=== PATIENT | male | born 1955 | race Caucasian/White ===

== ENCOUNTER 2021-09-15 19:33 | Emergency (ER) | payer MEDICARE, SELFPAY ==
--- NOTE | 2021-09-15 | ECG_ITS ---
Test Reason : NECK PAIN Blood Pressure : / mmHG Vent. Rate : 080 BPM Atrial Rate : 080 BPM P-R Int : 152 ms QRS Dur : 140 ms QT Int : 404 ms P-R-T Axes : 031 -36 001 degrees QTc Int : 465 ms Normal sinus rhythm Left axis deviation Right bundle branch block Abnormal ECG No previous ECGs available Referred By: Generic ED Physician Electronically Signed By:Todd North
--- NOTE | ~2021-09-15 | CT_ITS ---
EXAMINATION: CT CERVICAL SPINE WITHOUT CONTRAST CLINICAL INFORMATION: Neck pain, muscle spasm COMPARISON: None TECHNIQUE: Axial imaging. Sagittal and coronal reconstructions This CT examination was performed using dose optimization techniques as appropriate, variously including the following: *Automated exposure control *Adjustment of mA and/or kV according to patient size (this includes techniques or standardized protocols for targeted exams where dose is matched to indication/reason for exam; i.e. extremities or head) *Use of iterative reconstruction technique DLP: 547 mGy-cm FINDINGS: There is straightening of the cervical curvature. Minimal retrolisthesis of C3 on C4, C5 on C6. Vertebral body heights are maintained. No acute fractures identified. Craniocervical and atlantoaxial alignment is maintained. There is degeneration of the articulation of the dens and anterior arch of C1. Multilevel spondylosis, including mild to moderate C3-C4, C5-C6 disc degeneration. Central canal is grossly maintained. No significant prevertebral soft tissue swelling. There are 2 small foci of heterotopic ossification in the posterior soft tissues of the cervical spine. No suspicious thyroid findings. No suspicious findings in the visualized lung apices. CT/CT cervical spine wo con IMPRESSION: 1. No CT evidence of acute fracture. 2. Cervical spondylosis, including mild to moderate C3-C4, C5-C6 disc degeneration.
[2021-09-15 19:38] VITALS: BMI 32.8
--- NOTE | 2021-09-15 20:01 | ED.GENADULT ---
HPI - General Adult General Chief complaint: Neck Pain/Injury Stated complaint: tightened muscles, shooting pain from neck to head Time Seen by Provider: 09/15/21 19:53 Source: patient Limitations: no limitations History of Present Illness HPI narrative: This is a 65-year-old male who has had progressively worse pain in the feeling of muscle spasm in his neck, with worsened pain turning to the left, over the last month but especially in the last 4 days. Patient notes he got to hockey game 4 days ago and with looking back and forth the pain seemed to have gotten worse. He notes that when he drives he cannot walk to live. He denies any numbness or tingling to his arms or legs. Denies any injury. He does have a history of low back pain. When he was considerably younger he did have some neck pain when he was painting the house. He notes the pain radiates down toward his left shoulder and up to the back of his head. He has history of hypertension, diabetes mellitus, hypercholesterolemia. Related Data Previous Rx's Medication Instructions Recorded diazepam 5 mg tablet (Valium) 5 mg PO BID PRN muscle spasm #10 09/15/21 tabs Allergies Allergy/AdvReac Type Severity Reaction Status Date / Time No Known Allergies Allergy Verified 09/15/21 19:59 Review of Systems Review of Systems: As per HPI Constitutional: Constitutional: Denies headache(s) Eyes: Eyes: Reports no additional eye complaints ENT: Denies headache(s) and Reports neck pain Cardiovascular: Cardiovascular: Reports no additional cardiovascular complaints Respiratory: Respiratory: Reports no additional respiratory complaints Gastrointestinal: Gastrointestinal: Reports no additional gastrointestinal complaints Musculoskeletal: Musculoskeletal: Reports neck pain, Reports stiffness and Denies tingling Neurologic: Denies headache(s) and Denies tingling PMFSH Social History Social History Advance Directives: No Advance Directives Information Provided: No Physical Exam ED Vital Signs: BMI result Body Mass Index 32.8 Const Other: Patient sitting up on side of the gurney, appears mildly uncomfortable, cannot turn head to the left, tends to move torso with his neck to avoid independent neck movement. A focal C-spine tenderness. There is left-sided paraspinal tenderness at the base of the neck down to the trapezius muscle distribution, with mild spasm palpable General: no acute distress Orientation/consciousness: patient oriented x3 HENMT Head: Yes normal to inspection General nose exam: Normal external nose present Mouth: moist mucous membranes Throat: Yes posterior oropharynx normal, Yes tonsils normal and Yes uvula midline Eyes Eyelids: Yes eyelids normal Conjunctivae: conjunctivae normal Pupils: Equal, round and reactive pupils present Neck Neck: Yes supple Resp Effort & Inspection: normal respiratory effort Auscultation: clear to auscultation bilaterally Cardio Rate: regular rate Rhythm: regular rhythm Heart sounds: S1 normal heart sound present, S2 normal heart sound present, no gallops, no murmurs and no rubs GI Inspection: No distended Palpation (GI): Soft to palpation and nontender Auscultation: normal bowel sounds Skin General skin exam: other (Warm and dry) Neuro General: patient oriented x3 and CN's II-XI intact bilaterally Cranial nerves: Yes Equal, round and reactive pupils present Extrem General: Yes no pedal edema Psych Affect: normal affect Attitude: cooperative Medical Decision Making MDM Narrative Medical decision making narrative: Patient with gradual onset of left-sided neck muscle spasm and pain, radiating up to the back of his head and down toward his shoulder. No distinct injury, though the pain did get worse this week after watching the hockey game. Given the patient's age, CT scan noncontrast was done to rule out significant disc disease, or osteolytic or osteoblastic lesions, and the CT scan showed only spondylosis and mild to moderate disc degeneration. Patient was given Valium 6 mg p.o., Toradol 15 mg IM and had definite improvement in his symptoms. Will prescribe Valium, and the patient can take Naprosyn that his states they have at home Imaging Data CT cervical spine: Radiologist's impression: 1. No CT evidence of acute fracture. ? 2. Cervical spondylosis, including mild to moderate C3-C4, C5-C6 disc degeneration.? Discharge Plan Discharge Clinical Impression: Torticollis Patient Disposition: Home, Self-Care Instructions: Spasmodic Torticollis (ED) Additional Instructions: Use the Naprosyn 500 mg by mouth twice a day with food. Use the diazepam 5 mg p.o. to 3 times a day, for muscle pain/spasm. Ice alternating with heat may be helpful. Physical therapy referral by your primary care physician may be beneficial. Prescriptions: New diazepam [Valium] 5 mg tablet 5 mg PO BID PRN (Reason: muscle spasm) Qty: 10 0RF Interventions: ED Discharge Assessment Last Done: 09/15/21 21:15 Discharge Date/Time: 09/15/21 21:24
[2021-09-15] MEDS: diazePAM 2 MG TABLET 6 MG PO (20:15)
[2021-09-15] MEDS: Ketorolac Tromethamine 15 MG/ML VIAL IM (20:15)
== END 2021-09-15 21:24 | disposition home or self-care (01) ==
PROVIDERS: Emergency Provider Emergency Medicine; PCP Internal Medicine
DX: M43.6 Torticollis (principal)
CPT/HCPCS: 72125; 93005; 96372; 99283; 99284; J1885

== ENCOUNTER 2022-10-07 09:00 | Emergency (ER) | payer MEDICARE, SELFPAY ==
[2022-10-07 09:08] VITALS: BP 127/84; PULSE 80; RESP 16; TEMP 36.1; O2SAT 96; BMI 32.9
--- NOTE | 2022-10-07 10:35 | ED.SKABFB ---
HPI - Skin/Abscess/Foreign Bdy General Chief complaint: Skin/Abscess/Foreign Body Stated complaint: Right thumb infected? Time Seen by Provider: 10/07/22 09:47 Source: patient and RN notes reviewed Mode of arrival: ambulatory Limitations: no limitations History of Present Illness HPI narrative: This is a 66-year-old male, with a past medical history of diabetes, hypertension, and hyperlipidemia, presenting to the emergency department for evaluation right thumb splinter times days. Patient states he was moving a piece wood when suddenly he felt a sliver going to his right thumb. He did not try to remove the sliver. He states that the area is slightly sore has noticed increasing redness around sliver. Patient is right handed. Denies any fevers or chills complaints or concerns at this time. MD complaint: foreign body Tetanus up to date: no Severity: moderate Relieving factors: none Exacerbating factors: none Context: none Associated symptoms: denies other symptoms Treatments prior to arrival: none Related Data Previous Rx's Medication Instructions Recorded diazepam 5 mg tablet (Valium) 5 mg PO BID PRN muscle spasm #10 09/15/21 tabs bacitracin 500 unit/gram topical 1 appl topical TID #14 grams 10/07/22 ointment cephalexin 500 mg capsule 500 mg PO QID 5 days #20 caps 10/07/22 Allergies Allergy/AdvReac Type Severity Reaction Status Date / Time No Known Allergies Allergy Verified 10/07/22 11:35 Review of Systems Review of Systems: Constitutional: No Weight loss, No Fever, No Chills ENT/Mouth: No Ear Pain, No Nasal Congestion, No Sinus Pain, No Hoarseness, No sore throat, No Rhinorrhea, No Swallowing Difficulty Cardiovascular: No Chest Pain, No SOB Respiratory: No Cough, No Sputum, No Wheezing Gastrointestinal: No Nausea, No Vomiting, No Diarrhea, No Constipation, No Abdominal pain Genitourinary: No Dysuria, No Urinary Frequency, No Hematuria, No Urinary Incontinence/retention, No Urgency, No Flank Pain Musculoskeletal: No joint pain, No Myalgias, No Joint Swelling Skin: No Skin Lesions, No rash Neuro: No Weakness, No Numbness, No Paresthesias Yes all other systems are reviewed and are negative Constitutional: Constitutional: Reports as per [facility] Social History Social History Advance Directives: No Advance Directives Information Provided: No Physical Exam Vital Signs: Vital Signs: Last Vital Signs Temp 97 F 10/07/22 09:08 Pulse 80 10/07/22 09:08 Resp 16 10/07/22 09:08 BP 127/84 10/07/22 09:08 Pulse Ox 96 10/07/22 09:08 O2 Del Method Room Air 10/07/22 09:08 BMI result Body Mass Index 32.9 Const: General: cooperative, comfortable and no acute distress Orientation/consciousness: patient oriented x3 Limitations: no limitations HEENT: Head: Yes normal to inspection, Yes normocephalic and Yes atraumatic Ears: hearing grossly normal bilaterally General nose exam: Normal external nose present Face and sinus: Yes normal facial exam Mouth: Normal oral and palatal mucosa present, oropharynx normal and moist mucous membranes Throat: Yes posterior oropharynx normal Eyes: General: appearance normal, both eyes and all related structures Eyelids: Yes eyelids normal Conjunctivae: conjunctivae normal Sclerae: sclerae normal Pupils: Equal, round and reactive pupils present EOM: EOMs intact bilaterally Neck: Neck: Yes normal visual inspection, Yes full ROM and Yes no lymphadenopathy Lymphatic: no lymphadenopathy noted Chest: Chest palpation & inspection: normal inspection of the chest Resp: Effort & Inspection: normal respiratory effort and able to speak in complete sentences Auscultation: clear to auscultation bilaterally, no crackles, no rales, no rhonchi and no wheezes Cardio: Rate: regular rate Rhythm: regular rhythm Heart sounds: S1 normal heart sound present and S2 normal heart sound present GI: Inspection: Yes normal to inspection Skin: Other: Right thumb palmar aspect at the MCP there is a punctate black dot noted medially, with mild erythema surrounding proximally 2 mm from punctate foreign body. No drainage, open wounds, swelling. Distal sensation circulation intact. General skin exam: no rashes or lesions noted Trauma: no lacerations or abrasions Wounds: no wounds Neuro: General: patient oriented x3 and moves all extremities Cranial nerves: Yes Equal, round and reactive pupils present Extrem: General: Yes normal to inspection Right upper extremity: normal to inspection Left upper extremity: normal to inspection Right lower extremity: normal to inspection Left lower extremity: normal to inspection Medications Administered Discontinued Medications Generic Name Dose Route Start Last Admin Trade Name Freq PRN Reason Stop Dose Admin Diphtheria/Tetanus/Acell Pertussis 0.5 ml 10/07/22 10:40 10/07/22 11:24 Diphth,Pertus(Acell),Tet Adult 0.5 Ml Syringe IM 10/07/22 10:41 0.5 ml .ONCE ONE Administration Medical Decision Making Medical Decision Making [facility] Narrative: This 66-year-old male presenting to the emergency department with a complaint of sliver in right thumb x3 days. Has some surrounding tenderness no streaking drainage fevers or chills. Right thumb was soaked with Betadine saline for 20 minutes, foreign body was successfully removed using 20 gauge needle and forceps. Wound dressed with bacitracin and bandage. Patient tolerated procedure well without any complications or concerns. Will place patient on prophylactic Keflex for prevented cellulitis. Tetanus updated in department today. Educated on return precautions. Patient understands and agrees with plan. Patient stable for discharge. Plan: Update tetanus, removal foreign body. Differential Diagnosis Differential Diagnoses: The differential diagnosis associated with the presentation includes Foreign body, cellulitis, abscess Admission/Observation Consideration of admission/observation: Escalation of care including admission/observation considered Lab Data [facility] Lab Attestation statement: I reviewed the patient's lab results. Radiology Impression Discussion of test interpretation with radiology: I have reviewed the radiologist's reading. External Record Review External record reviewed: Inpatient record, Office record, Outpatient record, Prior outpatient labs, Prior outpatient radiology, Primary care record and Outside ED record Procedures Foreign Body Removal Time Out Performed: yes Site: right and hand Sedation/Analgesia: none Technique: manual removal and removal with forceps Confirmed by:: direct visualization Complications: none Post-procedure exam: awake, alert Neurovascular: normal distal pulse and normal capillary fill Discharge Plan Discharge Clinical Impression: Foreign body (FB) in soft tissue, Cellulitis Patient Disposition: Home, Self-Care Instructions: Soft Tissue Foreign Body (ED), Cellulitis (ED) Additional Instructions: We removed the splinter from your right thumb today. Please apply bacitracin to your thumb. Keep a close eye on your thumb, and watch for any increasing pain, redness, swelling, fevers or chills. Take prescribed antibiotic as directed. Finish the entire course even if your feeling better. We updated your tetanus immunization today. If any new or worsening symptoms occur please return for re-evaluation. Prescriptions: New cephalexin 500 mg capsule 500 mg PO QID 5 Days Qty: 20 0RF bacitracin 500 unit/gram ointment 1 appl topical TID Qty: 14 0RF No Action diazepam [Valium] 5 mg tablet 5 mg PO BID PRN (Reason: muscle spasm) Qty: 10 0RF Interventions: ED Discharge Assessment Last Done: 10/07/22 11:36 Discharge Date/Time: 10/07/22 11:36
== END 2022-10-07 11:36 | disposition home or self-care (01) ==
PROVIDERS: Emergency Provider Emergency Medicine; PCP Internal Medicine
DX: S60.511A Abrasion of right hand, initial encounter (principal); M60.241 Foreign body granuloma of soft tissue, not elsewhere classified, right hand; L03.113 Cellulitis of right upper limb; X58.XXXA Exposure to other specified factors, initial encounter; Y93.9 Activity, unspecified; Y92.9 Unspecified place or not applicable; Y99.9 Unspecified external cause status; Z79.899 Other long term (current) drug therapy; Z23 Encounter for immunization
CPT/HCPCS: 90471; 90715; 99282; 99284

== ENCOUNTER 2023-02-08 15:30 | Emergency (ER) | payer MEDICARE, SELFPAY ==
--- NOTE | ~2023-02-08 | XR_ITS ---
EXAMINATION: XR CHEST CLINICAL INFORMATION: Shortness of breath COMPARISON: None available. TECHNIQUE: 2 views of the chest were obtained. FINDINGS: No significant abnormality is noted involving the heart, lungs, mediastinum, bony thorax or soft tissues. XR/XR chest 2V IMPRESSION: Unremarkable examination.
[2023-02-08 15:38] VITALS: BP 151/89; PULSE 93; RESP 16; TEMP 36.8; O2SAT 95; BMI 35.6
--- NOTE | 2023-02-08 15:38 | ED.SOB ---
HPI - SOB/Dyspnea General Chief Complaint: Upper Respiratory Symptoms Stated Complaint: Diff breathing Time Seen by Provider: 02/08/23 16:45 Source: patient Mode of arrival: ambulatory Limitations: no limitations History of Present Illness HPI Narrative: Patient is a 67 year old assigned male at with a history of HTN and HLD presenting to the emergency department today with a cough. Patient states that over the last 2 weeks he has had a productive cough. Patient denies any current dizziness, lightheadedness, abdominal pain, nausea, vomiting, fever, chills, blurry vision, double vision, loss of vision, chest pain, difficulty breathing, shortness of breath, back pain, night sweats, pain with urination, increased urinary frequency, increased urinary urgency, blood in his urine or stool, syncope or a near syncopal episode, recent trauma or falls, bowel incontinence, bladder incontinence, bowel retention, bladder retention, or any other complaints at this time. MD elicited complaint: cough Onset (ago): week(s) (2) Context: recent illness Timing: constant Severity: mild Related Data Previous Rx's Medication Instructions Recorded diazepam 5 mg tablet (Valium) 5 mg PO BID PRN muscle spasm #10 09/15/21 tabs bacitracin 500 unit/gram topical 1 appl topical TID #14 grams 10/07/22 ointment cephalexin 500 mg capsule 500 mg PO QID 5 days #20 caps 10/07/22 doxycycline hyclate 100 mg tablet 100 mg PO BID 7 days #14 tabs 02/08/23 prednisone 20 mg tablet 20 mg PO DAILY 7 days #7 tabs 02/08/23 Allergies Allergy/AdvReac Type Severity Reaction Status Date / Time No Known Allergies Allergy Verified 02/08/23 15:38 Review of Systems Constitutional: Constitutional: Reports no additional constitutional complaints, Denies chills, Denies fever(s) and Denies night sweats Eyes: Eyes: Reports no additional eye complaints, Denies blurry vision, Denies change in vision, Denies diplopia, Denies eye discharge, Denies loss of vision and Denies eye pain ENT: Denies dizziness Cardiovascular: Cardiovascular: Reports no additional cardiovascular complaints, Denies chest pain, Denies lightheadedness, Denies Loss of Consciousness and Denies dyspnea Respiratory: Respiratory: Reports no additional respiratory complaints, Reports cough and Denies dyspnea Gastrointestinal: Gastrointestinal: Reports no additional gastrointestinal complaints, Denies abdominal pain, Denies melena, Denies hematochezia, Denies change in bowel habits and Denies change in stool character Genitourinary: Genitourinary: Reports no additional male genitourinary complaints, Denies hematuria, Denies oliguria, Denies difficulty urinating, Denies dysuria, Denies urinary frequency, Denies urinary hesitancy, Denies urinary incontinence and Denies urinary urgency Musculoskeletal: Musculoskeletal: Reports no additional musculoskeletal complaints, Denies numbness and Denies tingling Neurologic: Denies dizziness, Denies loss of vision, Denies numbness and Denies tingling Psychiatric: Psychiatric: Reports no additional psychiatric complaints Endocrine: Endocrine: Reports no additional endocrine complaints Hematologic/Lymphatic: Hematologic/Lymphatic: Reports no additional hematologic/lymphatic complaints Allergic/Immunologic: Allergic/Immunologic: Reports no additional allergic/immunologic complaints PMFSH Past Medical History Attestation statement: The following information was validated with the patient. Source: old records reviewed and nursing notes reviewed Social History Social History Advance Directives: No Advance Directives Information Provided: No Physical Exam Vital Signs: Vital Signs: Last Vital Signs Temp 98.3 F 02/08/23 15:38 Pulse 93 02/08/23 15:38 Resp 16 02/08/23 15:38 BP 151/89 H 02/08/23 15:38 Pulse Ox 95 02/08/23 15:38 O2 Del Method Room Air 02/08/23 15:38 BMI result Body Mass Index 35.6 Const: General: cooperative, no acute distress, alert and awake Nutritional Appearance: well nourished Orientation/consciousness: patient oriented x3 Limitations: no limitations HEENT: Head: Yes normal to inspection and Yes atraumatic Ears: hearing grossly normal bilaterally and external ears normal General nose exam: Normal external nose present, no nasal discharge noted and no epistaxis Face and sinus: Yes normal facial exam, No abrasion and No laceration Mouth: Normal oral and palatal mucosa present, no drooling and no muffled voice Eyes: General: appearance normal, both eyes and all related structures Periorbital: periorbital findings normal Eyelids: Yes eyelids normal Conjunctivae: conjunctivae normal Pupils: Equal, round and reactive pupils present EOM: EOMs intact bilaterally Neck: Neck: Yes normal visual inspection, Yes full ROM and Yes no lymphadenopathy Chest: Chest palpation & inspection: normal inspection of the chest Resp: Effort & Inspection: normal respiratory effort, able to speak in complete sentences and Actively coughing Quality: wet GI: Inspection: Yes normal to inspection Neuro: General: patient oriented x3 and moves all extremities Cranial nerves: Yes Equal, round and reactive pupils present Cognition (Neuro): normal cognition Motor exam (neuro): 5/5 motor strength present throughout Sensory Exam: Normal double simultaneous stimulation for sensation Coordination: [id number] test normal Extrem: General: Yes normal to inspection, Yes full ROM and Yes capillary refill normal Psych: Appearance: grossly normal Mental Status: mental status grossly normal Affect: normal affect Attitude: cooperative Thought process: Normal thought process present Thought content: Normal thought content present Insight: Good insight present (Psych) Course Course Course Narrative: This is an RME: Additional HPI, ROS, PE not included below will be deferred to primary provider. Productive cough x 2 weeks, over past week worsening, dyspnea with exertion. Denies fevers, chills, CP Plan: labs, viral testing, CXR Medical Decision Making Medical Decision Making [facility] Narrative: Patient is a 67 year old assigned male at with a history of HTN and HLD presenting to the emergency department today with a cough. Patient's physical exam showed a cough. Patient's blood work was unremarkable. Patient's chest x-ray showed no acute process. I explained my physical exam findings as well as all test results to the patient. I answered all questions asked by the patient. I stressed the importance of the patient taking his medication as prescribed. I stressed the importance of the patient following up with his primary care provider. I stressed the importance of the patient returning to the emergency department immediately if his symptoms were to worsen or if he were to develop any dizziness, shortness of breath, difficulty breathing, chest pain, blurry vision, loss of vision, nausea, vomiting, abdominal pain, fever, chills, back pain, or any other complaints. Patient verbalized agreement and understanding with this treatment plan and discharge. Differential Diagnosis Differential Diagnoses: The differential diagnosis associated with the presentation includes COVID-19 PNA Influenza Bronchitis URI Admission/Observation Consideration of admission/observation: Escalation of care including admission/observation considered Patient would have been admitted to the hospital had his work up had any findings where hospital admission was appropriate and his clinical presentation warranted hospital admission. Lab Data MDM Lab Attestation statement: I reviewed the patient's lab results. My interpretation of these studies and their corresponding values is that they are grossly normal. 02/08/23 15:51 02/08/23 15:51 Labs: Lab Results 02/08/23 Range/Units 15:51 WBC 6.7 (4.8-10.8) X10*3/uL RBC 5.51 (4.60-5.80) X10*6/uL Hgb 16.1 (14.0-18.0) g/dl Hct 47.8 (42.0-52.0) % MCV 86.8 (80.0-98.0) fL MCH 29.2 (27.0-33.0) pg MCHC 33.7 (31.0-36.0) g/dl RDW 11.8 (11.0-16.0) % Plt Count 202 (160-400) X10*3/uL MPV 11.7 (9.4-12.4) fL Immature Gran % (Auto) 0.1 (0.0-0.4) % Neut % (Auto) 56.1 (45-73) % Lymph % (Auto) 31.1 (20-40) % [place] % (Auto) 9.2 (2-11) % Eos % (Auto) 2.8 (0-4) % Baso % (Auto) 0.7 (0-2) % Lymph # (Auto) 2.1 (1.2-4.9) X10*3/uL [place] # (Auto) 0.6 (0.1-1.2) X10*3/uL Eos # (Auto) 0.2 (0.0-0.4) X10*3/uL Baso # (Auto) 0.1 (0.0-0.2) X10*3/uL Abs Immat Gran (auto) 0.01 (0.00-0.03) X10*3/uL Absolute Neuts (auto) 3.8 (2.0-8.3) x10*3/uL Absolute Nucleated RBC 0.000 (0.0-0.012) X10*3/uL Nucleated RBC % (auto) 0.0 (0.0-0.2) /100WBC PT 11.1 (11.1-13.3) SEC INR 0.9 (0.9-1.1) Sodium 140 (135-145) mmol/L Potassium 3.8 (3.3-5.1) mmol/L Chloride 106 (96-108) mmol/L Carbon Dioxide 28 (22-29) mmol/L Anion Gap 10 L (12-20) BUN 18 H (9-16) mg/dL Creatinine 1.13 (0.5-1.4) mg/dL Estim Creat Clear Calc 70.5 Estimated GFR > 60 Random Glucose 173 H (60-115) mg/dL Calcium 9.8 (8.4-10.2) mg/dL Total Bilirubin 0.6 (0.0-1.0) mg/dL AST 23 (5-37) U/L ALT 34 (0-40) U/L Alkaline Phosphatase 72 (39-117) U/L B-Natriuretic Peptide < 10 (<100) pg/mL Total Protein 8.0 (6.5-8.0) g/dL Albumin 4.6 (3.5-5.0) g/dL COVID-19 (AN) Negative (Negative) COVID-19 Clin Com See Note Influenza Type A (DUNCAN) Negative (Negative) Influenza Type B (DUNCAN) Negative (Negative) Influenza A & B Note See Note Independent Interpretation I performed an independent interpretation of an: Plain X-Ray Interpretation: My interpretation is in agreement with the radiologist's impression of this imaging study. EXAMINATION: XR CHEST CLINICAL INFORMATION: Shortness of breath COMPARISON: None available. TECHNIQUE: 2 views of the chest were obtained. FINDINGS: No significant abnormality is noted involving the heart, lungs, mediastinum, bony thorax or soft tissues. XR/XR chest 2V IMPRESSION: Unremarkable examination. Dictated By: Quyen Mccoy MD Signed By: Electronically signed by Quyen Mccoy MD 02/08/23 7955 Radiology Impression Discussion of test interpretation with radiology: I have reviewed the radiologist's reading. Prescription Management I considered prescription management with: Antibiotic (patient prescribed an antibiotic.) Chronic Conditions Patient?s care impacted by: Hypertension Discharge Plan Discharge Clinical Impression: Upper respiratory infection Patient Disposition: Home, Self-Care Instructions: Upper Respiratory Infection (DC) Additional Instructions: Follow up with your primary care provider. Return to the emergency department immediately if your symptoms worsen or if you develop any dizziness, shortness of breath, difficulty breathing, chest pain, blurry vision, loss of vision, nausea, vomiting, abdominal pain, fever, chills, back pain, or any other complaints. Prescriptions: New prednisone 20 mg tablet 20 mg PO DAILY 7 Days Qty: 7 0RF doxycycline hyclate 100 mg tablet 100 mg PO BID 7 Days Qty: 14 0RF No Action diazepam [Valium] 5 mg tablet 5 mg PO BID PRN (Reason: muscle spasm) Qty: 10 0RF cephalexin 500 mg capsule 500 mg PO QID 5 Days Qty: 20 0RF bacitracin 500 unit/gram ointment 1 appl topical TID Qty: 14 0RF Referrals: Joseline Bingham MD [Primary Care Provider] - Interventions: ED Discharge Assessment Last Done: 02/08/23 18:05 Discharge Date/Time: 02/08/23 18:08 Print Language: Cymraes
[2023-02-08 15:56] LABS: MANUAL DIFF FLAG NO
[2023-02-08 15:59] LABS: Basophils Absolute Auto 0.1 X10*3/uL (0.0-0.2); Basophils Percent Auto 0.7 % (0-2); Eosinophils Absolute Auto 0.2 X10*3/uL (0.0-0.4); Eosinophils Percent Auto 2.8 % (0-4); Hematocrit 47.8 % (42.0-52.0); Hemoglobin 16.1 g/dl (14.0-18.0); Imm Gran Abs Auto 0.01 X10*3/uL (0.00-0.03); Imm Gran Pct Auto 0.1 % (0.0-0.4); Lymphocytes Absolute Auto 2.1 X10*3/uL (1.2-4.9); Lymphocytes Percent Auto 31.1 % (20-40); Mean Corpuscular HGB Conc 33.7 g/dl (31.0-36.0); Mean Corpuscular Hemoglobin 29.2 pg (27.0-33.0); Mean Corpuscular Volume 86.8 fL (80.0-98.0); Mean Platelet Volume 11.7 fL (9.4-12.4); Monocytes Absolute Auto 0.6 X10*3/uL (0.1-1.2); Monocytes Percent Auto 9.2 % (2-11); Neutrophils Absolute Auto 3.8 x10*3/uL (2.0-8.3); Neutrophils Percent Auto 56.1 % (45-73); Platelet Count 202 X10*3/uL (160-400); Red Blood Count 5.51 X10*6/uL (4.60-5.80); Red Cell Distribution Width 11.8 % (11.0-16.0); White Blood Count 6.7 X10*3/uL (4.8-10.8)
[2023-02-08 16:07] LABS: INTERNATIONAL NORM RATIO 0.9 (0.9-1.1); Prothrombin Time 11.1 SEC (11.1-13.3)
[2023-02-08 16:14] LABS: COVID-19 Test Negative (Negative); IDNOW Serial# BCCEAD1C
[2023-02-08 16:15] LABS: IDNOW Serial# 08D9AD1C; Influenza A Negative (Negative); Influenza B2 Negative (Negative)
[2023-02-08 16:18] LABS: Alanine Aminotransferase 34 U/L (0-40); Albumin Level 4.6 g/dL (3.5-5.0); Alkaline Phosphatase 72 U/L (39-117); Anion Gap 10 (12-20); Aspartate Amino Transferase 23 U/L (5-37); Bilirubin Total 0.6 mg/dL (0.0-1.0); Blood Urea Nitrogen 18 mg/dL (9-16); Calcium 9.8 mg/dL (8.4-10.2); Carbon Dioxide 28 mmol/L (22-29); Chloride 106 mmol/L (96-108); Creatinine Clr Calc Pharmacy 70.5; Estimated Glomerular Filt Rate > 60; Glucose Random 173 mg/dL (60-115); Potassium 3.8 mmol/L (3.3-5.1); Sodium 140 mmol/L (135-145)
[2023-02-08 16:23] LABS: B Type Natriuretic Peptide < 10 pg/mL (<100)
== END 2023-02-08 18:08 | disposition home or self-care (01) ==
PROVIDERS: Nurse Practitioner Family; Emergency Provider Emergency Medicine Emergency Medical Services; PCP Internal Medicine
DX: J06.9 Acute upper respiratory infection, unspecified (principal); R06.02 Shortness of breath; R05.9 Cough, unspecified; Z11.52 Encounter for screening for COVID-19; Z20.822 Contact with and (suspected) exposure to COVID-19; Z79.899 Other long term (current) drug therapy
CPT/HCPCS: 36415; 71046; 80053; 83880; 85025; 85610; 87502; 87635; 99282; 99283

== ENCOUNTER 2023-08-18 09:44 | Inpatient (IN) | payer MEDICARE, SELFPAY ==
[2023-08-18] VITALS (10 sets, daily range): BP systolic 108–154; BP diastolic 53–96; PULSE 97–123; RESP 14–22; TEMP 36.4–37; O2SAT 89–97; BMI 34.5
--- NOTE | ~2023-08-18 | XR_ITS ---
EXAMINATION: XR CHEST CLINICAL INFORMATION: Cough. COMPARISON: Most recent chest radiograph dated 02/08/2023. TECHNIQUE: 2 views of the chest were obtained. FINDINGS: The lungs are clear. The cardiomediastinal silhouette is normal in size. There is no pleural effusion or pneumothorax. No acute osseous abnormality. XR/XR chest 2V IMPRESSION: No acute cardiopulmonary findings.
--- NOTE | ~2023-08-18 | CT_ITS ---
EXAMINATION: CT CHEST WITHOUT CONTRAST CLINICAL INFORMATION: Shortness of breath COMPARISON: None available. TECHNIQUE: Multidetector volumetric CT imaging of the chest was done. Axial MIP volume rendering provided. Sagittal and coronal reformatted images were obtained. This CT examination was performed using dose optimization techniques as appropriate, variously including the following: *Automated exposure control *Adjustment of mA and/or kV according to patient size (this includes techniques or standardized protocols for targeted exams where dose is matched to indication/reason for exam; i.e. extremities or head) *Use of iterative reconstruction technique DLP: 337 mGy-cm FINDINGS: LUNGS: Central airways patent. Expiratory phase scan with mild diffuse bronchial wall thickening. Mild bilateral dependent subsegmental atelectasis. Mild linear left lower lobe and lingular atelectasis or scarring. No focal pulmonary consolidation. No suspicious pulmonary nodules identified. PLEURA: There is no pleural effusion. MEDIASTINUM: The heart is normal in size. Aorta and pulmonary artery are normal in caliber. No pericardial effusion. No mediastinal lymphadenopathy. Lack of intravenous contrast limits evaluation for hilar lymphadenopathy. No bulky hilar lymphadenopathy appreciated. CORONARY ARTERY CALCIFICATION: Mild coronary artery calcifications present. CHEST WALL/AXILLA: No axillary lymphadenopathy. UPPER ABDOMEN: Diffuse hepatic steatosis. OSSEOUS STRUCTURES: Chronic mild central superior endplate compression deformity of the T4 vertebral body. CT/CT chest wo IV con IMPRESSION: 1. Mild diffuse bronchial wall thickening may be accentuated by expiratory phase of scan though can be seen with inflammatory airways disease. No focal pulmonary consolidation or acute abnormality of the thorax. 2. Diffuse hepatic steatosis. 3. Mild coronary artery calcifications present. Correlate with cardiac risk factors.
--- NOTE | 2023-08-18 09:55 | ECG_ITS ---
Test Reason : sob Blood Pressure : / mmHG Vent. Rate : 107 BPM Atrial Rate : 107 BPM P-R Int : 146 ms QRS Dur : 138 ms QT Int : 348 ms P-R-T Axes : 023 -42 -02 degrees QTc Int : 464 ms Sinus tachycardia Left axis deviation Right bundle branch block Abnormal ECG When compared with ECG of 15-SEP-2021 19:36, No significant change was found Referred By: Generic ED Physician Electronically Signed By:Todd North
[2023-08-18 10:17] LABS: Basophils Percent Auto 0.2 % (0-2); Eosinophils Absolute Auto 0.1 X10*3/uL (0.0-0.4); Eosinophils Percent Auto 0.8 % (0-4); Hematocrit 49.7 % (42.0-52.0); Hemoglobin 16.5 g/dl (14.0-18.0); Imm Gran Abs Auto 0.02 X10*3/uL (0.00-0.03); Imm Gran Pct Auto 0.2 % (0.0-0.4); Lymphocytes Absolute Auto 1.6 X10*3/uL (1.2-4.9); Lymphocytes Percent Auto 17.6 % (20-40); MANUAL DIFF FLAG NO; Mean Corpuscular HGB Conc 33.2 g/dl (31.0-36.0); Mean Corpuscular Hemoglobin 29.5 pg (27.0-33.0); Mean Corpuscular Volume 88.9 fL (80.0-98.0); Mean Platelet Volume 11.6 fL (9.4-12.4); Monocytes Absolute Auto 0.7 X10*3/uL (0.1-1.2); Neutrophils Absolute Auto 6.6 x10*3/uL (2.0-8.3); Neutrophils Percent Auto 73.2 % (45-73); Platelet Count 167 X10*3/uL (160-400); Red Blood Count 5.59 X10*6/uL (4.60-5.80); Red Cell Distribution Width 12.5 % (11.0-16.0)
--- NOTE | 2023-08-18 10:22 | ED_ITS ---
HPI - General Adult General Chief complaint: Dyspnea Stated complaint: SOB Time Seen by Provider: 08/18/23 10:18 Source: patient Mode of arrival: ambulatory Limitations: no limitations History of Present Illness ED Provider: Janet REYES HPI narrative: 67-year-old male hx htn, hld, obesity, presents with a week of shortness of breath, cough, fatigue, malaise. Patient reports that he has been feeling increasingly short of breath with exertion and afterwards he will have a coughing fit, mostly a dry cough with sometimes has clear sputum. Patient reports shortness of breath and cough awoke him from his sleep last night multiple times. No recent travel, not a smoker, not on hormones. Doesnt know if he had a fever or not. Denies nausea, vomiting, headache, vision changes, dizziness, weakness, abd pain, sore throat. No sick contacts Related Data Home Medications ?Medication ?Instructions ?Recorded ?Confirmed amlodipine 5 mg tablet 5 mg PO DAILY 08/18/23 atorvastatin 40 mg tablet 40 mg PO DAILY 08/18/23 fenofibrate 54 mg tablet 54 mg PO DAILY 08/18/23 glipizide 5 mg tablet, extended 5 mg PO DAILY 08/18/23 release 24 hr lisinopril 20 mg tablet 20 mg PO DAILY 08/18/23 metformin 500 mg tablet 500 mg PO BID 08/18/23 omeprazole 40 mg capsule,delayed 40 mg PO DAILY 08/18/23 release Allergies Allergy/AdvReac Type Severity Reaction Status Date / Time No Known Allergies Allergy Verified 08/18/23 09:53 Review of Systems 2 Review of Systems: Yes all other systems are reviewed and are negative PMFSH Past Medical History Attestation statement: The following information was validated with the patient. Source: old records reviewed and nursing notes reviewed Social History Social History Advance Directives: No Advance Directives Information Provided: No Physical Exam ED Vital Signs: Vital Signs - 24 hr 08/18/23 09:50 08/18/23 10:38 08/18/23 11:24 Temperature 98.6 F 97.6 F Pulse Rate 114 H 98 Respiratory Rate 20 19 22 H Blood Pressure 153/96 H 146/81 H Pulse Oximetry 94 92 97 Oxygen Delivery Method Room Air Room Air Room Air 08/18/23 12:00 Temperature 97.7 F Pulse Rate 97 Respiratory Rate 20 Blood Pressure 138/77 Pulse Oximetry 93 Oxygen Delivery Method Room Air BMI result Body Mass Index 34.5 vss Appearance: Alert.? Oriented X3.? No acute distress.? Head: Normocephalic, atraumatic, no step-offs or deformities Eyes: Pupils equal, round and reactive to light.? ENT: Pharynx normal.? Neck: Normal inspection.? Neck supple.? CVS: Normal heart rate and rhythm.? Pulses normal.? Respiratory: No respiratory distress.? Breath sounds dinished b/l.? Abdomen: Soft and nontender.? Skin: Skin warm and dry.? Normal skin color.? Normal skin turgor.? Extremities: No lower extremity edema.? No calf ttp. 5/5 strength to bilateral upper and lower extremities Neuro: Oriented X 3.? No motor deficit.? No sensory deficit. CN 2-12 intact Course Reevaluation(s) Reevaluation #1: CBC no acute findings requiring intervention. Chemistry unremarkable. Troponin negative BNP negative. D-dimer negative. Nonischemic EKG. Ambulatory O2 between 93% 97%. Flu, COVID, RSV negative. Chest x-ray no acute cardiopulmonary findings. Ordered a chest CT to ensure that there is no other underlying etiologies for shortness of breath. Time: 11:37 Reevaluation #2: Patient keeps dipping down to 88-89% on room air. Still complaining of shortness of breath. Neb was ordered. Will give antibiotics for bronchial wall thickening noted and history consistent with bronchitis. Will admit for bronchitis and hypoxia. Time: 13:24 Medical Decision Making Medical Decision Making [facility] Narrative: 1033 67 year old male presents w/ sob and cough x 1 week worse w/ exertion PE diminished b/l Hx and pe concerning for viral illness vs bronchitis. Unlikley PE, ACS, CHF, ARDS, pna Plan- labs, imaging, xray Differential Diagnosis Differential Diagnoses: The differential diagnosis associated with the presentation includes Hx and pe concerning for viral illness vs bronchitis. Unlikley PE, ACS, CHF, ARDS, pna Lab Data 08/18/23 10:11 08/18/23 10:11 Labs: Lab Results 08/18/23 08/18/23 Range/Units 10:11 10:35 WBC 9.0 (4.8-10.8) X10*3/uL RBC 5.59 (4.60-5.80) X10*6/uL Hgb 16.5 (14.0-18.0) g/dl Hct 49.7 (42.0-52.0) % MCV 88.9 (80.0-98.0) fL MCH 29.5 (27.0-33.0) pg MCHC 33.2 (31.0-36.0) g/dl RDW 12.5 (11.0-16.0) % Plt Count 167 (160-400) X10*3/uL MPV 11.6 (9.4-12.4) fL Immature Gran % (Auto) 0.2 (0.0-0.4) % Neut % (Auto) 73.2 H (45-73) % Lymph % (Auto) 17.6 L (20-40) % [place] % (Auto) 8.0 (2-11) % Eos % (Auto) 0.8 (0-4) % Baso % (Auto) 0.2 (0-2) % Lymph # (Auto) 1.6 (1.2-4.9) X10*3/uL [place] # (Auto) 0.7 (0.1-1.2) X10*3/uL Eos # (Auto) 0.1 (0.0-0.4) X10*3/uL Baso # (Auto) 0.0 (0.0-0.2) X10*3/uL Abs Immat Gran (auto) 0.02 (0.00-0.03) X10*3/uL Absolute Neuts (auto) 6.6 (2.0-8.3) x10*3/uL Absolute Nucleated RBC 0.000 (0.0-0.012) X10*3/uL Nucleated RBC % (auto) 0.0 (0.0-0.2) /100WBC PT 12.7 (11.1-13.3) SEC INR 1.0 (0.9-1.1) D-Dimer High Sensitivty < 150 NG/ML Sodium 139 (135-145) mmol/L Potassium 3.7 (3.3-5.1) mmol/L Chloride 104 (96-108) mmol/L Carbon Dioxide 22 (22-29) mmol/L Anion Gap 17 (12-20) BUN 19 H (9-16) mg/dL Creatinine 1.08 (0.5-1.4) mg/dL Estim Creat Clear Calc 72.6 Estimated GFR > 60 Random Glucose 300 H (60-115) mg/dL Calcium 10.3 H (8.4-10.2) mg/dL Magnesium 1.6 (1.6-2.6) mg/dL Total Bilirubin 0.9 (0.0-1.0) mg/dL Direct Bilirubin 0.3 (0.0-0.5) mg/dL AST 20 (5-37) U/L ALT 30 (0-40) U/L Alkaline Phosphatase 62 (39-117) U/L Troponin I High Sens < 2.7 (<3.5-35.0) ng/L B-Natriuretic Peptide < 10 (<100) pg/mL Total Protein 7.5 (6.5-8.0) g/dL Albumin 4.5 (3.5-5.0) g/dL Influenza Type A (PCR) NEGATIVE (Negative) Influenza Type B (PCR) NEGATIVE (Negative) RSV RNA Qual (PCR) NEGATIVE (Negative) SARS-CoV-2 RNA (RT-PCR) NEGATIVE (Negative) Critical Care Time Critical Care Time Critical Care Time: Yes Total Critical Care Time: 45 Attestation: I attest to this time spent taking care of the patient, obtaining history, physical, reviewing labs, imaging, speaking to my attending, specialist or hospitalist. Discharge Plan Discharge Clinical Impression: Bronchitis, Hypoxia Patient Disposition: Admitted As Inpatient Additional Instructions: Take your medications as prescribed. If you were prescribed antibiotics today, it is important that you take your medication to their entirety, do not skip any doses, do not finish them early. Follow-up with your primary care provider this week. Return to the emergency department with new or worsening symptoms. Such as fevers, chills, chest pain, shortness of breath, nausea, vomiting, dizziness, headache, vision changes, lethargy In case of emergency call 911 Print Language: Mongolian
[2023-08-18 10:43] LABS: Alanine Aminotransferase 30 U/L (0-40); Albumin Level 4.5 g/dL (3.5-5.0); Alkaline Phosphatase 62 U/L (39-117); Anion Gap 17 (12-20); Aspartate Amino Transferase 20 U/L (5-37); Bilirubin Direct 0.3 mg/dL (0.0-0.5); Bilirubin Total 0.9 mg/dL (0.0-1.0); Blood Urea Nitrogen 19 mg/dL (9-16); Calcium 10.3 mg/dL (8.4-10.2); Carbon Dioxide 22 mmol/L (22-29); Chloride 104 mmol/L (96-108); Creatinine Clr Calc Pharmacy 72.6; Estimated Glomerular Filt Rate > 60; Glucose Random 300 mg/dL (60-115); Magnesium 1.6 mg/dL (1.6-2.6); Potassium 3.7 mmol/L (3.3-5.1); Sodium 139 mmol/L (135-145); Total Protein 7.5 g/dL (6.5-8.0)
[2023-08-18 10:48] LABS: B Type Natriuretic Peptide < 10 pg/mL (<100)
[2023-08-18 10:49] LABS: Troponin-I High Sensitivity < 2.7 ng/L (<3.5-35.0)
[2023-08-18 11:01] LABS: Prothrombin Time 12.7 SEC (11.1-13.3)
[2023-08-18 11:01] LABS: Influenza A PCR NEGATIVE (Negative); Influenza B PCR NEGATIVE (Negative); Resp Syncy Virus RNA Qual PCR NEGATIVE (Negative); SARS COV2 PCR INHOUSE NEGATIVE (Negative)
[2023-08-18 11:04] LABS: D Dimer High Sensitivity < 150 NG/ML
[2023-08-18] MEDS: Albuterol Sulfate 2.5 MG, Albuterol/Iprat 2.5/0.5MG 3 ML 3 ML INHALE (13:33)
--- NOTE | 2023-08-18 13:39 | P.HPHOSP_ITS ---
History of Present Illness Date of Service: 08/18/23 Attending physician on admission: Catarino Taveras Chief Complaint: SOB Pt is a 67-year-old male with a PMH significant for?HTN, HLD, sin-rhehjtt-wkshxoaln type 2 diabetes, hx of prostate cancer s/p radical prostatectomy and radiation,and GERD who presents to the ED with?cough, SOB, weakness, and malaise x1 week. Reports having prolonged, uncontrollable coughing episodes without clear precipitating factors, though feels SOB and winded after exertion. Cough mostly dry but occasionally productive of clear sputum. Mild abdominal pain associated with cough. No fever, chills, N/V or diarrhea. Denies hx of smoking or diagnosis of asthma or COPD. No chest pain/pressure, palpitations. Not on home inhalers. Denies recent travel or sick contacts. Patient presents today due to prolonged and persistent nature of symptoms, and at the recommendation of a nurse he saw yesterday at a wellness check at his work. In the ED pt was afebrile, but tachycardic up to 114, tachypneic up 22, and initially hypertensive to 153/96, noted to be satting as low as 87% on RA during interview and exam. Labs were grossly unremarkable. No leukocytosis. Stable H&H. No significant electrolyte abnormalities. Renal and hepatic function baseline. Troponin negative. BNP negative. D-dimer negative. CXR showed no acute cardiopulmonary findings. CT?of chest found mild diffuse bronchial wall thickening without focal pulmonary consolidation or acute abnormality of the thorax. Also showed diffuse hepatic steatosis and mild coronary artery calcification. EKG demonstrated sinus tachycardia with RBBB and no significant ST elevations or depressions, similar to previous. Pt was treated with DuoNeb, Solu-Medrol azithromycin, and ceftriaxone. Pt will be admitted to the hospital under observation for treatment and further evaluation of acute hypoxic respiratory failure in the setting bronchitis likely secondary to viral source. Review of Systems 2 Review of Systems: Mostly nonproductive cough SOB, LOZANO Fatigue, malaise No chest pain/pressure, palpitations Denies nausea, vomiting, diarrhea [facility] Medical History (Updated 08/18/23 @ 15:18 by NUVIA Fraga) Prostate cancer GERD (gastroesophageal reflux disease) Non-insulin dependent type 2 diabetes mellitus HTN (hypertension) HLD (hyperlipidemia) Surgical History (Updated 08/18/23 @ 15:18 by NUVIA Fraga) H/O radical prostatectomy Social History Advance Directives: No Advance Directives Information Provided: No Meds Allergies Allergy/AdvReac Type Severity Reaction Status Date / Time No Known Allergies Allergy Verified 08/18/23 09:53 Active Medications: Current Medications Ceftriaxone Sodium 1 gm/ (Sodium Chloride) 50 mls @ 100 mls/hr IV ONCE ONE Stop: 08/18/23 13:52 Azithromycin 500 mg/ Sodium (Chloride) 250 mls @ 125 mls/hr IV ONCE ONE Stop: 08/18/23 15:22 Home Medications ?Medication ?Instructions ?Recorded ?Confirmed ?Last Taken ?Type amlodipine 5 mg tablet 5 mg PO BEDTIME 08/18/23 08/18/23 Unknown History atorvastatin 40 mg tablet 40 mg PO BEDTIME 08/18/23 08/18/23 Unknown History cholecalciferol (vitamin D3) 50 50 mcg PO BEDTIME 08/18/23 08/18/23 Unknown History mcg (2,000 unit) tablet (Vitamin D3) fenofibrate 54 mg tablet 54 mg PO DAILY 08/18/23 08/18/23 08/18/23 09:00 History glipizide 5 mg tablet, extended 5 mg PO DAILY 08/18/23 08/18/23 08/18/23 09:00 History release 24 hr lisinopril 20 mg tablet 20 mg PO BEDTIME 08/18/23 08/18/23 Unknown History metformin 500 mg tablet 500 mg PO BID 08/18/23 08/18/23 08/18/23 09:00 History multivitamin 1 tab PO DAILY 08/18/23 08/18/23 08/18/23 09:00 History naproxen sodium 220 mg tablet 220 mg PO DAILY 08/18/23 08/18/23 08/18/23 09:00 History omeprazole 40 mg capsule,delayed 40 mg PO DAILY@0630 08/18/23 08/18/23 08/18/23 09:00 History release Physical Exam 2 Vital Signs and Narrative: Vital Signs: Last Vital Signs Temp 97.7 F 08/18/23 12:00 Pulse 101 H 08/18/23 13:34 Resp 16 08/18/23 13:34 BP 138/77 08/18/23 12:00 Pulse Ox 93 08/18/23 12:00 O2 Del Method Room Air 08/18/23 12:00 BMI result Body Mass Index 34.5 Constitutional: Alert, in no acute distress. Mental Status: Oriented to person, place and time. Eyes: Pupils are equal, round, and reactive to light. Ear, Nose, and Throat: Oropharynx clear, mucous membranes moist. Ears and nose without deformities. Trachea midline. Respiratory: Clear to auscultation bilaterally but diminished. No wheezing, rales, or rhonchi. Some extra work of breathing but able to speak in full sentences. Cardiovascular: S1, S2 regular rhythm but tachycardic. No murmurs, rubs, or gallops. Gastrointestinal: Abdomen soft, non-tender, non-distended. Normal bowel sounds. Neurologic: Cranial nerves II-XII are grossly intact bilaterally. No focal neurological deficits. Moves all extremities spontaneously. Skin: Warm, dry. Musculoskeletal: No cyanosis or clubbing. Extremities: No edema. Psychiatric: Normal mood and affect. Results Labs 08/18/23 10:11 08/18/23 10:11 Labs: Laboratory Results - last 24 hr 08/18/23 08/18/23 10:11 10:35 MCV 88.9 MCH 29.5 MCHC 33.2 RDW 12.5 Plt Count 167 MPV 11.6 Immature Gran % (Auto) 0.2 Neut % (Auto) 73.2 H Lymph % (Auto) 17.6 L Ford % (Auto) 8.0 Eos % (Auto) 0.8 Baso % (Auto) 0.2 Lymph # (Auto) 1.6 Ford # (Auto) 0.7 Eos # (Auto) 0.1 Baso # (Auto) 0.0 Abs Immat Gran (auto) 0.02 Absolute Neuts (auto) 6.6 Absolute Nucleated RBC 0.000 Nucleated RBC % (auto) 0.0 PT 12.7 INR 1.0 D-Dimer High Sensitivty < 150 Anion Gap 17 Estim Creat Clear Calc 72.6 Estimated GFR > 60 Random Glucose 300 H Calcium 10.3 H Magnesium 1.6 Total Bilirubin 0.9 Direct Bilirubin 0.3 AST 20 ALT 30 Alkaline Phosphatase 62 Troponin I High Sens < 2.7 B-Natriuretic Peptide < 10 Total Protein 7.5 Albumin 4.5 Influenza Type A (PCR) NEGATIVE Influenza Type B (PCR) NEGATIVE RSV RNA Qual (PCR) NEGATIVE SARS-CoV-2 RNA (RT-PCR) NEGATIVE Imaging Radiologist's Impressions: Impressions Chest X-Ray 08/18/23 10:47 IMPRESSION: No acute cardiopulmonary findings. Chest CT 08/18/23 11:44 IMPRESSION: 1. Mild diffuse bronchial wall thickening may be accentuated by expiratory phase of scan though can be seen with inflammatory airways disease. No focal pulmonary consolidation or acute abnormality of the thorax. 2. Diffuse hepatic steatosis. 3. Mild coronary artery calcifications present. Correlate with cardiac risk factors. Assessment and Plan (1) Hypoxia: Status: Acute (2) Bronchitis: Status: Acute Plan Pt is a 67-year-old male with a PMH significant for?HTN, HLD, qps-nnxxglu-kbisjzsik type 2 diabetes, hx of prostate cancer s/p radical prostatectomy and radiation, and GERD who presents to the ED with?cough, SOB, weakness, and malaise x1 week. Pt will be admitted to the hospital under observation for treatment and further evaluation of acute hypoxic respiratory failure in the setting bronchitis likely secondary to viral source. Acute hypoxic respiratory failure in the setting of bronchitis likely secondary to viral source Patient with increased SOB, mostly nonproductive cough, weakness, malaise, LOZANO x1 week Noted to repeatedly drop to 87% O2 on RA CT of chest showed mild diffuse bronchial wall thickening without pulmonary consolidation Pt does not meet sepsis criteria: likely viral source, tachycardia secondary to albuterol use; no fever or leukocytosis Patient given DuoNebs, Solu-Medrol, azithromycin, and ceftriaxone in the ED Will continue azithromycin for pleiotropic effects, started 08/18/2023 DuoNebs, guaifenesin Titrate supplemental O2 >92, wean as tolerated HTN Continue amlodipine, lisinopril HLD Continue statin, fenofibrate Hgm-gmawpkq-gtildyamo type 2 diabetes mellitus Hold metformin Sliding-scale insulin, glipizide Diabetic diet GERD PPI Full Code Attending:?Dr. Taveras DVT Prophylaxis: Lovenox Patient will be admitted to the hospital under observation for treatment and further evaluation of acute hypoxic respiratory failure in setting of bronchitis likely secondary to a viral source. Quality Stroke Does the patient have a stroke diagnosis?: No VTE Prior VTE?: No VTE Risk Level:: Medical - moderate - high VTE Device Contraindication: Treatment Not Indicated VTE Drug Contraindication: N/A - Med Ordered
[2023-08-18 14:08] LABS: Lactic Acid 1.6 mmol/L (0.5-2.0)
--- NOTE | 2023-08-18 14:10 | PHA.MEDREC ---
Pharmacy Consult ? Medication Reconciliation Pharmacy has completed the medication reconciliation.
[2023-08-18] MEDS: Azithromycin 500 MG in 0.9 % Sodium Chloride 250 ML 125 MG IV (14:25)
[2023-08-18] MEDS: cefTRIAXone sodium 1 GM in 0.9 % Sodium Chloride 50 ML IV (14:25)
[2023-08-18] MEDS: methylPREDNISolone Sod Succ 125 MG/2 ML VIAL IVPUSH (14:25)
[2023-08-18 14:31] LABS: Procalcitonin 0.09 ng/mL
[2023-08-18] MEDS: Albuterol/Iprat 2.5/0.5MG 3 ML AMPUL.NEB INHALE ×2 (15:02→19:24)
[2023-08-18] MEDS: Insulin Lispro 100 UNIT/ML 3 ML VIAL SUBCUT ×2 (16:38→21:50)
[2023-08-18] MEDS: Enoxaparin Sodium 40 MG/0.4 ML SYRINGE SUBCUT (16:39)
[2023-08-18] MEDS: 0.9 % Sodium Chloride Flush 3 ML SYRINGE IVFLUSH (16:39)
[2023-08-18 16:45] LABS: Glucose, Whole Blood 201 mg/dL (60-115)
[2023-08-18 20:01] LABS: Glucose, Whole Blood 309 mg/dL (60-115)
[2023-08-18] MEDS: Cholecalciferol (Vitamin D3) 25 MCG TABLET 50 MCG PO (21:49)
[2023-08-18] MEDS: lisinopriL 20 MG TABLET PO (21:51)
[2023-08-18] MEDS: amLODIPine Besylate 5 MG TABLET PO (22:00)
[2023-08-18] MEDS: Atorvastatin Calcium 40 MG TABLET PO (22:00)
--- NOTE | 2023-08-18 23:32 | PC.NURSE ---
assumed care at 1900, pt denies any pain, medicated per MAR
[2023-08-19 00:38] VITALS: BP 109/58; PULSE 96; RESP 16; TEMP 36.4; O2SAT 92
[2023-08-19] MEDS: 0.9 % Sodium Chloride Flush 3 ML SYRINGE IVFLUSH ×2 (00:41→08:21)
[2023-08-19 04:56] VITALS: BP 126/80; PULSE 87; RESP 17; TEMP 36.6; O2SAT 96
--- NOTE | 2023-08-19 05:48 | PC.NURSE ---
pt assessed, tolerating o2, pt reported he takes his Prilosec after he eats
[2023-08-19 07:28] VITALS: PULSE 87; RESP 17; O2SAT 95
[2023-08-19] MEDS: Albuterol/Iprat 2.5/0.5MG 3 ML AMPUL.NEB INHALE (07:28)
[2023-08-19 07:33] LABS: Glucose, Whole Blood 194 mg/dL (60-115)
[2023-08-19 08:12] VITALS: BP 142/69; PULSE 115; RESP 18; TEMP 36.4; O2SAT 86; O2SAT 95
--- NOTE | 2023-08-19 08:16 | PC.NURSE ---
pt found to be at 86% on RA. attempted to place pt on 1, 2 and 3L via NC. O2 sat only went up to 89%. pt currently on 4L via NC - resting at 93%. no sob/wob noted. respirations even and unlabored. lung sounds clear throughout. pt positioned upright to promote patent airway. pt sinus tachy on the monitor - HR 115bpm. denies chest pain/palpitations. medication administered per provider order. plan of care ongoing.
[2023-08-19] MEDS: Omeprazole 40 MG CAPSULE.DR PO (08:18)
[2023-08-19] MEDS: Insulin Lispro 100 UNIT/ML 3 ML VIAL SUBCUT ×2 (08:18→12:14)
[2023-08-19] MEDS: Multivitamin TABLET 1 TAB PO (08:18)
[2023-08-19 09:38] LABS: Adenovirus PCR Not Detected (Not Detect.); Bordetella parapertussis PCR Not Detected (Not Detect.); Bordetella pertussis PCR Not Detected (Not Detect.); Chlamydia pneumoniae PCR Not Detected (Not Detect.); Coronavirus 229E PCR Not Detected (Not Detect.); Coronavirus HKU1 PCR Not Detected (Not Detect.); Coronavirus NL63 PCR Not Detected (Not Detect.); Coronavirus OC43 PCR Not Detected (Not Detect.); Human metapneumovirus PCR Not Detected (Not Detect.); Influenza A PCR Not Detected (Not Detect.); Influenza B PCR Not Detected (Not Detect.); Mycoplasma pneumoniae PCR Not Detected (Not Detect.); Parainfluenza 1 PCR Not Detected (Not Detect.); Parainfluenza 2 PCR Not Detected (Not Detect.); Parainfluenza 3 PCR Detected (Not Detect.); Parainfluenza 4 PCR Not Detected (Not Detect.); RSV PCR Not Detected (Not Detect.); Rhino/Enterovirus PCR Not Detected (Not Detect.)
[2023-08-19 09:56] LABS: SARS-CoV-2 PCR Not Detected (Not Detect.)
--- NOTE | 2023-08-19 10:33 | PC.NURSE ---
spoke to pharmacy in regards to missing medications for a second time - states they will bring them down. will administer medication when able.
[2023-08-19 12:12] LABS: Glucose, Whole Blood 196 mg/dL (60-115)
--- NOTE | 2023-08-19 12:36 | PC.NURSE ---
pt moved to ED overflow. Pharmacy called for missing medications.
[2023-08-19] MEDS: Fenofibrate 54 MG TABLET PO (12:44)
[2023-08-19] MEDS: glipiZIDE XL 5 MG TAB.ER.24 PO (12:44)
[2023-08-19] MEDS: Azithromycin 500 MG in 0.9 % Sodium Chloride 250 ML 125 MG IV (13:47)
[2023-08-19 14:34] VITALS: BP 133/81; PULSE 90; RESP 18; TEMP 36.6; O2SAT 92
[2023-08-19 15:12] VITALS: BP 130/82; PULSE 100; RESP 14; TEMP 36.3; O2SAT 96
--- NOTE | 2023-08-19 15:53 | PC.NURSE ---
patient just arrived from ED and Dr Taveras immediately in to see patient and he is being discharged
--- NOTE | 2023-08-19 16:00 | PM.DS ---
DS: Providers Provider Date of Service: 08/19/23 Date of admission: 08/19/23 11:04 Primary care physician: Joseline Bingham MD DS: Diagnosis Discharge Diagnosis (1) Hypoxia: Status: Acute (2) Bronchitis: Status: Acute DS: Summary Hospital Course Hospital Course: History of presenting illness: Date of Service: 08/18/23 Attending physician on admission: Catarino Taveras Chief Complaint: SOB Pt is a 67-year-old male with a PMH significant for?HTN, HLD, fys-vrstvis-ikqzxvncp type 2 diabetes, hx of prostate cancer s/p radical prostatectomy and radiation,and GERD who presents to the ED with?cough, SOB, weakness, and malaise x1 week. Reports having prolonged, uncontrollable coughing episodes without clear precipitating factors, though feels SOB and winded after exertion. Cough mostly dry but occasionally productive of clear sputum. Mild abdominal pain associated with cough. No fever, chills, N/V or diarrhea. Denies hx of smoking or diagnosis of asthma or COPD. No chest pain/pressure, palpitations. Not on home inhalers. Denies recent travel or sick contacts. Patient presents today due to prolonged and persistent nature of symptoms, and at the recommendation of a nurse he saw yesterday at a wellness check at his work. In the ED pt. was afebrile, but tachycardic up to 114, tachypneic up 22, and initially hypertensive to 153/96, noted to be satting as low as 87% on RA during interview and exam. Labs were grossly unremarkable. No leukocytosis. Stable H&H. No significant electrolyte abnormalities. Renal and hepatic function baseline. Troponin negative. BNP negative. D-dimer negative. CXR showed no acute cardiopulmonary findings. CT?of chest found mild diffuse bronchial wall thickening without focal pulmonary consolidation or acute abnormality of the thorax. Also showed diffuse hepatic steatosis and mild coronary artery calcification. EKG demonstrated sinus tachycardia with RBBB and no significant ST elevations or depressions, similar to previous. Pt was treated with DuoNeb, Solu-Medrol azithromycin, and ceftriaxone. Pt will be admitted to the hospital under observation for treatment and further evaluation of acute hypoxic respiratory failure in the setting bronchitis likely secondary to viral source. Hospital course: 67-year-old male with a PMH significant for?HTN, HLD, pfp-eriuuqk-hvwiciodo type 2 diabetes, hx of prostate cancer s/p radical prostatectomy and radiation, and GERD who presents to the ED with?cough, SOB, weakness, and malaise x1 week and noted to be in acute hypoxic respiratory failure acute , with tachypnea, tachycardia noted to be in respiratory distress likely in the setting of viral infection CT chest showed multiple diffuse bronchial wall thickening without pulmonary consolidation patient was admitted to medical floor for close monitoring and was placed on DuoNeb updraft, cough medications, azithromycin for pleiotropic effects, patient responded rapidly to above treatment respiratory viral panel came back positive for parainfluenza virus, patient oxygenation improved, since he is hemodynamically stable he is being discharged home with recommendation to cover face with sneezing and coughing to take analgesics cough medication and rest In regard to hypertension is recommended to resume home medications amlodipine and lisinopril, and continue statin and fenofibrate for hyperlipidemia Szs-nqjiinn-zaqicowcl type 2 diabetes mellitus recommend to resume metformin and glipizide. Time Attestation Discharge Coordination Time (in mins): 36 Quality: Safe Use of Opioids Does Pt have an Active Cancer Diagnosis on the Problem List?: No Quality: Stroke Does the patient have a stroke diagnosis?: No Physical Exam Vital Signs: Vital Signs: Last Vital Signs Temp 97.3 F 08/19/23 15:12 Pulse 100 08/19/23 15:12 Resp 14 08/19/23 15:12 BP 130/82 08/19/23 15:12 Pulse Ox 96 08/19/23 15:12 O2 Del Method Room Air 08/19/23 15:12 O2 Flow Rate 4 08/19/23 08:12 BMI result Body Mass Index 34.5 Const: Other: General awake alert x3, in no acute distress. Neck supple no JVD. CVS regular rate rhythm, Respiratory lungs clear to auscultation, no respiratory distress, no wheeze, no rhonchi. Gastrointestinal abdomen soft, nontender, bowel sounds audible Extremities no edema. Neuro non focal Skin no rash DS: Data Data Completed and Pending Labs on day of discharge: Laboratory Results - last 24 hr 08/18/23 08/18/23 08/18/23 15:03 16:29 19:54 POC Glucose 201 H 309 H Respiratory Panel Baker See Note Adenovirus (Rapid PCR) Not Detected B.pert (TEM-PCR) Not Detected B.parapertussis DNA PCR Not Detected C. pneumoniae DNA (PCR) Not Detected Coronavirus OC43 (PCR) Not Detected Coronavirus HKU1 (PCR) Not Detected Coronavirus 229E (PCR) Not Detected Coronavirus NL63 (PCR) Not Detected Human Metapneumovir PCR Not Detected Influenza A (RT-PCR) Not Detected Influenza B (RT-PCR) Not Detected M. pneumoniae (PCR) Not Detected Parainfluenza 1 (PCR) Not Detected Parainfluenza 2 (PCR) Not Detected Parainfluenza 3 (PCR) Detected A Parainfluenza 4 (PCR) Not Detected RSV (PCR) Not Detected Entero/Rhino (PCR) Not Detected SARS-CoV-2 RNA (RT-PCR) Not Detected 08/19/23 08/19/23 07:24 12:09 POC Glucose 194 H 196 H Respiratory Panel Baker Adenovirus (Rapid PCR) B.pert (TEM-PCR) B.parapertussis DNA PCR C. pneumoniae DNA (PCR) Coronavirus OC43 (PCR) Coronavirus HKU1 (PCR) Coronavirus 229E (PCR) Coronavirus NL63 (PCR) Human Metapneumovir PCR Influenza A (RT-PCR) Influenza B (RT-PCR) M. pneumoniae (PCR) Parainfluenza 1 (PCR) Parainfluenza 2 (PCR) Parainfluenza 3 (PCR) Parainfluenza 4 (PCR) RSV (PCR) Entero/Rhino (PCR) SARS-CoV-2 RNA (RT-PCR) Preliminary micro results at discharge 08/18/23 13:44 Blood Culture - Preliminary Blood - Venous No growth after 24 hours. Discharge Plan Discharge Anticipated Discharge Date/Time: 08/19/23 15:58 Patient Disposition: Home, Self-Care Discharge Diagnosis: Acute hypoxic respiratory failure Parainfluenza viral URI Referrals: Joseline Bingham MD [Primary Care Provider] - 2 days Discharge Medications: Continued atorvastatin 40 mg tablet 40 mg PO BEDTIME metformin 500 mg tablet 500 mg PO BID lisinopril 20 mg tablet 20 mg PO BEDTIME glipizide 5 mg tablet extended release 24hr 5 mg PO DAILY amlodipine 5 mg tablet 5 mg PO BEDTIME omeprazole 40 mg capsule,delayed release(DR/EC) 40 mg PO DAILY@0630 fenofibrate 54 mg tablet 54 mg PO DAILY multivitamin Tablet 1 tab PO DAILY naproxen sodium 220 mg Tablet 220 mg PO DAILY cholecalciferol (vitamin D3) [Vitamin D3] 50 mcg (2,000 unit) Tablet 50 mcg PO BEDTIME Discharge Orders: Discharge Order (Routine); Ordered 08/19/23 Ordered By: Catarino Taveras Diet: Diabetic diet Activity on Discharge: As tolerated Stand Alone Forms: Patient Portal Discharge page Print Language: Yakut Activity Restrictions/Additional Instructions: Take your medications as prescribed. If you were prescribed antibiotics today, it is important that you take your medication to their entirety, do not skip any doses, do not finish them early. Follow-up with your primary care provider this week. Return to the emergency department with new or worsening symptoms. Such as fevers, chills, chest pain, shortness of breath, nausea, vomiting, dizziness, headache, vision changes, lethargy In case of emergency call 911 Care Plan Goals: You have parainfluenza viral infection, rest take cough syrup, Tylenol for fever and headache Hypoxia resolved Covered face with sneezing coughing Health Concerns: Diabetes/hypertension resume all home medications Plan of Treatment: Follow-up with primary care physician call for appointment Assessment: As above Patient Instructions: Acute Bronchitis (ED) Discharge Date/Time: 08/19/23 16:14
== END 2023-08-19 16:14 | disposition home or self-care (01) | DRG 202 ==
LOC: HO.ED 13:26 → HO.EDOVER 14:53 → HO.S3 08-19 13:48
PROVIDERS: Physician Assistant; Admitting Provider Student in an Organized Health Care Education/Training Program; Emergency Provider Emergency Medicine; PCP Internal Medicine; Visit Provider Hospitalist
DX: J20.4 Acute bronchitis due to parainfluenza virus (principal); J96.01 Acute respiratory failure with hypoxia; K21.9 Gastro-esophageal reflux disease without esophagitis; I10 Essential (primary) hypertension; Z85.46 Personal history of malignant neoplasm of prostate; Z90.79 Acquired absence of other genital organ(s); E78.5 Hyperlipidemia, unspecified; Z79.84 Long term (current) use of oral hypoglycemic drugs; Z79.899 Other long term (current) drug therapy
CPT/HCPCS: 0241U; 36415; 71046; 71250; 80048; 80076; 82947; 83605; 83735; 83880; 84145; 84484; 85025; 85379; 85610; 87040; 87633; 93005; 94640; 99218; 99285; J0456; J0696; J1650; J2919

== ENCOUNTER → 2023-08-18 09:55 | Outpatient (BNV) | payer MEDICARE, SELFPAY | PROVIDERS: Admitting Provider Student in an Organized Health Care Education/Training Program; Emergency Provider Emergency Medicine; PCP Internal Medicine; Visit Provider Internal Medicine Cardiovascular Disease | DX: R00.0 Tachycardia, unspecified (principal) | CPT/HCPCS: 93010 ==

== ENCOUNTER 2024-07-30 20:49 | Emergency (ER) | payer MEDICARE, SELFPAY ==
--- NOTE | ~2024-07-30 | XR_ITS ---
CLINICAL HISTORY: Cough 1 view chest x-ray Comparison: CR/SR - XR CHEST 2V - 08/18/23 10:43 EDT Findings: The heart is mildly enlarged. 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 Somewhat low lung volumes. No consolidation, significant pleural effusion or pneumothorax. No acute fracture. IMPRESSION: 1. No acute findings. This document has been electronically signed by: Elda Guillermo MD on 07/30/2024 21:39:54
[2024-07-30 21:00] VITALS: BP 149/89; PULSE 96; RESP 16; TEMP 36.7; O2SAT 93; BMI 34.1
--- NOTE | 2024-07-30 21:07 | ECG_ITS ---
Test Reason : chest pain Blood Pressure : */* mmHG Vent. Rate : 93 BPM Atrial Rate : 93 BPM P-R Int : 148 ms QRS Dur : 136 ms QT Int : 378 ms P-R-T Axes : 25 -37 -5 degrees QTcB Int : 469 ms Normal sinus rhythm Left axis deviation Right bundle branch block Abnormal ECG When compared with ECG of 18-Aug-2023 10:00, No significant change was found Referred By: Generic ED Physician Electronically Signed By: Todd North
[2024-07-30 22:22] LABS: Influenza A PCR NEGATIVE (Negative); Influenza B PCR NEGATIVE (Negative); Resp Syncy Virus RNA Qual PCR NEGATIVE (Negative); SARS COV2 PCR INHOUSE NEGATIVE (Negative)
--- NOTE | 2024-07-30 23:26 | ED_ITS ---
HPI - URI/Sore Throat General Chief Complaint: Upper Respiratory Symptoms Stated Complaint: cough,sob Time Seen by Provider: 07/30/24 23:12 History of Present Illness ED Provider: Darius Wilder MD HPI Narrative: 68-year-old male with history of diabetic on oral hypoglycemics he has had about a week of cough says that he mainly is coming for evaluation concerned about pulse ox he measured at home that was 90. He also tells me last night he woke up have in some distress feeling as if he had mucus obstructing his airway was able to cough it up. No hemoptysis no chest pain no fever. Related Data Home Medications ?Medication ?Instructions ?Recorded ?Confirmed amlodipine 5 mg tablet 5 mg PO BEDTIME 08/18/23 08/18/23 atorvastatin 40 mg tablet 40 mg PO BEDTIME 08/18/23 08/18/23 cholecalciferol (vitamin D3) 50 50 mcg PO BEDTIME 08/18/23 08/18/23 mcg (2,000 unit) tablet (Vitamin D3) fenofibrate 54 mg tablet 54 mg PO DAILY 08/18/23 08/18/23 glipizide 5 mg tablet, extended 5 mg PO DAILY 08/18/23 08/18/23 release 24 hr lisinopril 20 mg tablet 20 mg PO BEDTIME 08/18/23 08/18/23 metformin 500 mg tablet 500 mg PO BID 08/18/23 08/18/23 multivitamin 1 tab PO DAILY 08/18/23 08/18/23 naproxen sodium 220 mg tablet 220 mg PO DAILY 08/18/23 08/18/23 omeprazole 40 mg capsule,delayed 40 mg PO DAILY@0630 08/18/23 08/18/23 release Allergies Allergy/AdvReac Type Severity Reaction Status Date / Time No Known Allergies Allergy Verified 07/30/24 21:04 [facility] Past Medical History Medical History (Updated 07/31/24 @ 00:11 by Darius Wilder MD) Prostate cancer GERD (gastroesophageal reflux disease) Non-insulin dependent type 2 diabetes mellitus HTN (hypertension) HLD (hyperlipidemia) Surgical History (Updated 08/18/23 @ 15:18 by NUVIA Fraga) H/O radical prostatectomy Social History Social History Patient Tobacco Use Status: Never used Tobacco Advance Directives: No Advance Directives Information Provided: No Do you have a plan to hurt others: No Plan Physical Exam Vital Signs: Vital Signs: Last Vital Signs Temp 98.1 F 07/31/24 00:26 Pulse 81 07/31/24 00:26 Resp 18 07/31/24 00:26 BP 132/84 07/31/24 00:26 Pulse Ox 94 07/31/24 00:26 O2 Del Method Room Air 07/31/24 00:26 BMI result Body Mass Index 34.1 Const: Other: EXAM: Gen: Alert, awake, well appearing, well hydrated. Head: Atraumatic Eyes: Anicteric, Normal conjunctiva. ENT: Moist mucosa, no pallor. ?Midline uvula no evidence of [employer]LE[employer]ICATION [employer]CH[employer]ICIAN. Normal posterior oropharynx neck is supple no stridor Neck: Supple. Respiratory: Breathing comfortably, No distress.Clear to auscultation bilaterally, symmetric chest expansion, No wheeze, rales, ronchi. Cardiovascular: Regular rate and rhythm. No murmurs or rub. Well perfused periphery, warm extremities. No edema. ? Abdominal: Soft, no objective distension. No palpable masses or obvious organomegaly. No focal tenderness, no guarding, no rebound tenderness or other peritoneal findings. : No flank tenderness. Neuro: Alert. Gross movement of all extremities intact. ? Vital signs: See flowsheet Medical Decision Making Medical Decision Making [facility] Narrative: 68-year-old male with cough self-reported low oxygen at home 90% but no hypoxemia here. Clear lungs, normal reassuring ENT exam. Looks clinically well. Chest x-ray without infiltrate. ECG right bundle-branch block no acute ischemic changes. Patient did have an isolated oxygen saturation 90% but this increased briefly and fluctuated he was relatively steady at 94-95% and was in no distress Lab Data [facility] Lab Attestation statement: I reviewed the patient's lab results. Labs: Lab Results 07/30/24 Range/Units 21:31 Influenza Type A (PCR) NEGATIVE (Negative) Influenza Type B (PCR) NEGATIVE (Negative) RSV RNA Qual (PCR) NEGATIVE (Negative) SARS-CoV-2 RNA (RT-PCR) NEGATIVE (Negative) Independent Interpretation I performed an independent interpretation of an: EKG (Sinus rhythm no acute ischemic changes, right bundle-branch block) and Plain X-Ray (No infiltrate) Discharge Plan Discharge Clinical Impression: Upper respiratory infection Patient Disposition: Home, Self-Care Instructions: Upper Respiratory Infection (ED) Additional Instructions: DISCHARGE DIAGNOSES: Cough, possibly postnasal drip probably viral upper respiratory infection HISTORY OF PRESENTATION: ?Cough, subjective mucous obstruction of the upper airways EMERGENCY DEPARTMENT COURSE,TESTS, TREATMENTS: While in the ED today you had an x-ray of your chest which showed no abnormalities, specifically no pneumonia. Prydeinig female ECG showed right bundle branch block which is consistent with previous no acute significant abnormalities. You had negative flu RSV and COVID testing DISCHARGE MEDICATIONS: ?[We have made no changes to your regular medication regimen] you can take [id number] Flonase and/or Mucinex FOLLOW-UP: ?Call your primary or general physician soon as possible to discuss your symptoms, your ED visit and to discuss follow up plans Call your primary doctor for follow up INSTRUCTIONS ?& RETURN PRECAUTIONS: If any symptoms change first call your primary physician, if it is after-hours your primary doctors office should have a provider correctional nurse you can speak with. If the symptoms are severe or very concer dominique to you then call 911 or return to the ED. Try warm water RT with honey as a cough suppressant Darius Wilder MD Emergency Physician [facility] Prescriptions: No Action atorvastatin 40 mg tablet 40 mg PO BEDTIME metformin 500 mg tablet 500 mg PO BID lisinopril 20 mg tablet 20 mg PO BEDTIME glipizide 5 mg tablet extended release 24hr 5 mg PO DAILY amlodipine 5 mg tablet 5 mg PO BEDTIME omeprazole 40 mg capsule,delayed release(DR/EC) 40 mg PO DAILY@0630 fenofibrate 54 mg tablet 54 mg PO DAILY multivitamin Tablet 1 tab PO DAILY naproxen sodium 220 mg Tablet 220 mg PO DAILY cholecalciferol (vitamin D3) [Vitamin D3] 50 mcg (2,000 unit) Tablet 50 mcg PO BEDTIME Interventions: ED Discharge Assessment Last Done: 07/31/24 00:26 Discharge Date/Time: 07/31/24 00:32 Print Language: Bots[place]
--- OUTSIDE RECORDS SUMMARY | 2024-07-30 23:46 | XMS_ITS | Clinical Summary ---
Author Organization [facility] Address [address] [place] [address] Care Team Providers Care Paper Maker Name Role Phone Joseline Bingham MD Primary Care Provider [phone] Allergies No known active allergies Medications Medication Sig Dispensed Refills Start Date End Date Status omeprazole (PriLOSEC) 40 MG capsule Take 1 capsule (40 mg total) by mouth daily. 0 Active atorvastatin (LIPITOR) tablet 40 mg Take 1 tablet (40 mg total) by mouth daily. 0 Active lisinopril (PRINIVIL,ZESTRIL) tablet 20 mg Take 1 tablet (20 mg total) by mouth daily. 0 Active Cholecalciferol (vitamin D3) 10 MCG (400 UNIT) TABS Take by mouth. 0 Activ e naproxen (NAPROSYN) 500 MG tablet Take 1 tablet (500 mg total) by mouth 2 (two) times a day with meals. 0 Active Multiple Vitamin (MULTIVITAMIN ADULT PO) Take by mouth. 0 Active amLODIPine (NORVASC) tablet 5 mg Take 1 tablet (5 mg total) by mouth daily. 0 Active metFORMIN (GLUCOPHAGE) tablet 500 mg Take 1 tablet (500 mg total) by mouth 2 (two) times a day with meals. 0 Active glipiZIDE (GLUCOTROL XL) ER 24 hr tablet 5 mg Take 1 tablet (5 mg total) by mouth daily. 0 Active fenofibrate (TRICOR) tablet 145 mg Take 1 tablet (145 mg total) by mouth daily. 0 Active Active Problems Problem Noted Date Diagnosed Date Prostate cancer 10/19/2022 Social History Tobacco Use Types Packs/Day Years Used Date Smoking Tobacco: Never Assessed Sex and Gender Information Value Date Recorded Sex Assigned at Not on file Gender Identity Not on file Sexual Orientation Not on file Job Start Date Occupation Industry Not on file Not on file Not on file Last Filed Vital Signs Vital Sign Reading Time Taken Comments Blood Pressure 133/79 07/30/2023 10:30 AM EDT Pulse 76 07/30/2023 10:30 AM EDT Temperature 36.9 ??C (98.4 ??F) 07/30/2023 10:30 AM E DT Respiratory Rate - - Oxygen Saturation 96% 07/30/2023 10:30 AM EDT Inhaled Oxygen Concentration - - Weight 101.2 kg (223 lb) 07/30/2023 10:30 AM EDT Height 170.2 cm (5' 7 ) 11/23/2022 11:24 AM EDT Body Mass Index 34.93 11/23/2022 11:24 AM EDT Plan of Treatment Health Maintenance Due Date Last Done Comments Hepatitis C Screening 1955 COVID-19 Vaccine (#1) 1958 Depression Screening 1965 Preventative Health Evaluation 11/19/1971 Colon Cancer Screening (Colonoscopy) 1998 Fall Risk Assessment 2018 Pneumococcal Vaccine (2 of 2 - PPSV23 or PCV20) 04/06/2020 02/10/2020, 01/13/2020 DTap / Tdap / Td (2 - Td or Tdap) 12/12/2020 12/12/2010 Influenza Vaccine (#1) 2023 , 01/12/2015, 01/18/2014, Additional history exists RSV Adult > 60+ Yrs or (1 - 1-dose 75+ series) 2028 Shingrix-Zoster Vaccine Completed 03/29/2020, 01/13 Hepatitis B Vaccines Aged Out No long er eligible based on patient's age to complete this topic RSV Ped < 20 months Aged Out No longe r eligible based on patient's age to complete this topic Care Teams Paper Maker Relationship Specialty Start Date End Date Joseline Bingham MD [address] [place] [id number] PCP - General Internal Medicine 10/08/22
--- OUTSIDE RECORDS SUMMARY | 2024-07-30 23:46 | XMS_ITS ---
Author Organization [facility] Address [address] [address] Care Team Providers Care Operations Project Manager Name Role Phone Antonio Rosado Primary Care Provider DODIE Maldonado [phone] REASON FOR VISIT 1yr Encounters Encounter Location Date Provider Diagnosis [facility] [address] [address] 03/05/2023 DODIE SEPULVEDA Plan Of Treatment No Information Progress Notes * NIEVES MAHMOODDOB: (68 yo M)Acc No.[id number]:03/05/2023 Progress Note Patient:?NIEVES MAHMOOD Provider:?Dodie Sepulveda DPM :1955???Age:67 Y???Sex:Male Anastacio e:03/05/2023 Address:[address] [place], [place] [id number] Pcp:Antonio Rosado Subjective: * Chief Complaints: * ???1. 1yr. * Medical History:? Objective: * Vitals:? Assessment: Plan: * Treatment: * Billing Information: * Visit Code:? * Procedure Codes:? * Electronic signature of OSMANY SEPULVEDA D.P.M on 07/30/2024 at 11:46 PM EDT Sign off status: Pending * Provider:Leonie Sepulveda DPM Date:? 03/05/2023 Generated for Arcenioi ng/Fabuzzg/eTransmitting on:?07/30/2024 11:46 PM EDT
--- OUTSIDE RECORDS SUMMARY | 2024-07-30 23:46 | XMS_ITS | Clinical Summary ---
Author Organization [facility] Address [address] [place] [address] Phone Care Team Providers Care Branch Manager Trainee Name Role Phone Joseline Bingham MD Primary Care Provider [phone] Allergies No known active allergies Medications atorvastatin (LIPITOR) 40 mg tablet Take 1 tablet (40 mg total) by mouth 1 (one) time each day. Active cholecalcifero l (VITAMIN D-3) 10 mcg (400 unit) tablet Take by mouth. Active fenofibrate (TRICOR) 145 mg tablet Take 1 tablet (145 mg total) by mouth daily. Active naproxen (NAPROSYN) 500 mg tablet Take 1 tablet (500 mg total) by mouth 2 (two) times a day with meals. Active multivitamin with minerals (CENTRUM/CERTA VIT) 18-400 mg-mcg tablet tablet Take by mouth. Active diclofenac (Voltaren Arthritis Pain) 1 % topical gel Place 1 g on the skin. 09/05/19 16 Active fenofibrate (LOFIBRA) 54 mg tablet Take 1 tablet (54 mg total) by mouth 1 (one) time each day. 01/22/20 24 Active hydrOXYzine HCL (ATARAX) 10 mg tablet Take 1 tablet (10 mg total) by mouth. 11/29/19 23 Active lidocaine-pril ocaine (EMLA) 2.5-2.5 % cream Apply to painful heel BID PRN pain 09/06/19 16 Active LORazepam (ATIVAN) 0.5 mg tablet Take 1 tablet (0.5 mg total) by mouth. 04/26/19 24 Active acetaminophen (TYLENOL) 500 mg tablet Take 1 tablet (500 mg total) by mouth every 6 (six) hours if needed. 11/14/19 24 Active lancets (OneTouch Delica Plus Lancet) 33 gauge APPLY TOPICALLY 2 TIMES DAILY. DX E11.9 01/22/20 24 Active OneTouch Delica Plus Lanc Dev lancing device USE TO TEST BLOOD SUGAR TWICE DAILY. E11.9 07/08/19 24 Active metFORMIN XR (GLUCOPHAGE-XR ) 750 mg 24 hr tablet Take 1 tablet (750 mg total) by mouth 2 (two) times a day. Do not crush, chew, or split. 60 each 11 03/05/20 24 025 Active amLODIPine (NORVASC) 5 mg tablet Take 1 tablet (5 mg total) by mouth 1 (one) time each day. 30 tablet 11 03/05/20 24 Active glipiZIDE (GLUCOTROL XL) 5 mg 24 hr tablet TAKE 1 TABLET BY MOUTH EVERY DAY 90 tablet 3 04/12/19 25 Active omeprazole (PriLOSEC) [address] capsule TAKE 1 CAPSULE BY MOUTH EVERY DAY 90 capsule 3 04/18/19 25 Active Seakeeper Ultra Test test strip USE TO CHECK BLOOD SUGARS ONCE DAILY 100 strip 1 05/18/19 25 Active lisinopriL (PRINIVIL,ZEST RIL) 20 mg tablet TAKE 1 TABLET BY MOUTH EVERY DAY 90 tablet 1 07/18/19 25 Active scopolamine (TRANSDERM-SCO P) 1 mg over 3 days patch 3 dayIndications :Sea sickness, sequela Apply 1 patch topically every 3rd (third) day if needed (nausea). 10 patch 07/23/19 25 Active lisinopriL (PRINIVIL,ZEST RIL) 20 mg tablet Take 1 tablet (20 mg total) by mouth 1 (one) time each day. 025 Discontinued metFORMIN (GLUCOPHAGE) 500 mg tablet TAKE 1 TABLET BY MOUTH TWICE A DAY WITH MEALS 180 tablet 3 03/27/20 24 025 Discontinued(Ex pired) Active Problems Problem Noted Date Diagnosed Date S/P left rotator cuff repair 05/12/2024 Nontraumatic complete tear of left rotator cuff 02/17/2024 Acute pain of left shoulder 02/17/2024 Prostate cancer ([facility] V24, [facility] V28) 10/19 Microalbuminuria 01/23/2021 Diabetes mellitus ([facility] V24, [facility] V28) Assessment & Plan (07/22/2024 9:02 AM EDT): Orders: Hemoglobin A1c; Future Comprehensive metabolic panel; Future Ambulatory referral to Podiatry; Future Essential hypertension 05/28/2017 Assessment & Plan (07/22/2024 9:02 AM EDT): Orders: Hemoglobin A1c; Future Comprehensive metabolic panel; Future Ambulatory referral to Podiatry; Future Gastroesophageal reflux disease without esophagi tis 09/28/2015 Dyslipidemia 12/12/2010 Assessment & Plan (07/22/2024 9:02 AM EDT): Orders: Hemoglobin A1c; Future Comprehensive metabolic panel; Future Ambulatory referral to Podiatry; Future Encounters Date Type Department Care Team Description 07/22/2024 8:30 AM EDT Office Visit Internal Medicine - [place] [facility] [address] [place] [phone] Joseline Bingham MD Type 2 diabetes mellitus without complication, without long-term current use of insulin ([facility] V24, [facility] V28) (Primary Dx); Essential hypertension; Dyslipidemia; Sea sickness, sequela; Encounter for subsequent annual wellness visit (AWV) in Medicare patient 05/13/2024 9:30 AM EST Office Visit Orthopedic Surgery - [place] [address] [facility] [address] [place] [address] Ofelia Hartmann PA S/P left rotator cuff repair (Primary Dx) from Last 3 Months Immunizations Name Administration Dates Next Due Influenza trivalent, 0.5mL ( Fluad) 65yo and older 12/30/2018 Influenza trivalent, 0.5mL, preservative free (Fluarix; FluLaval; Fluzone) ages 6mo and older (Afluria) 3 years and older 01/12/2015,01/18/2014,03/16/2012,2010 Influenza, Unspecified 02/01/2022,2020,01/15/2020,2015 Moderna SARS-CoV-2 COVID-19, mRNA, LNP-S, preservative free 02/09/2021 Pneumococcal conjugate 13 va lent (Prevnar 13, PCV13) 2mo and older 02/10/2020,01/13/2020 Td Tetanus diptheria (Tdvax) 7yo and older 01/30/2021,08/30/2000 Tdap Tetanus diptheria acell ular pertussis (Boostrix; Adacel) 7yo and older 12/12/2010 Zoster Live 02/18/2016 Zoster recombinant (Shingrix ) 19yo and older 03/29/2020,01/14/2020 Surgical History Surgery Date Site/Laterality Comments ESOPHAGOGASTRODUODENOSCOPY 05/05/2014 PROCEDURE: AK ESOPHAGOGASTRODUODENOSCOPY TRANSORAL DIAGNOSTIC; COMMENT: normal, with normal esophageal biopsies. OTHER SURGICAL HISTORY PROCEDURE: ---- OTHER ----; COMMENT: nasal septum repair at age of 16 OTHER SURGICAL HISTORY PROCEDURE: ---- OTHER ----; COMMENT: prostate biopsy PROSTATECTOMY 09/24/2014 PROCEDURE: PROSTATECTOMY; COMMENT: Dr. Carranza COLONOSCOPY 10/31/2007 PROCEDURE: HISTORICAL COLONOSCOPY; COMMENT: normal; repeat in ten years OTHER SURGICAL HISTORY 11/25/2017 PROCEDURE: COLON CA SCRN NOT HI RSK IND; COMMENT: normal; repeat in 10 yrs if healthy ROTATOR CUFF REPAIR 2018 Right PROCEDURE: HISTORICAL ROTATOR CUFF REPAIR ROTATOR CUFF REPAIR 11/14/2023 Left PROCEDURE: HISTORICAL ROTATOR CUFF REPAIR; COMMENT: Left arthroscopic rotator cuff repair, subacromial decompression, labral debridement, distal clavicle resction. Medical History Medical History Date Comments Mixed hyperlipidemia DX:Mixed hy perlipidemia Dyslipidemia 12/12/2010 DX:Dyslipidemia Obesity 12/12/2010 DX:Obesity Prostate CA (CMS/HCC V24, CMS/HCC V28) DX:Prostate CA (HCC) Prediabetes DX:Prediabetes HTN (hypertension) DX:HTN (hyper tension) Recurrent prostate adenocarc inoma (CMS/HCC V24, CMS/HCC V28) 04/2018 DX:Recurrent prostate adeno carcinoma (HCC); COMMENT: biochem recurrence. Dr. molina Family History Medical History Relation Name Comments Diabetes Brother Diabetes Father Heart attack Maternal Grandfather in his 70' Colon cancer Paternal Grandfather Diabetes Paternal Grandmother Diabetes Sister Relation Name Status Comments Brother Father Maternal Grandfather Paternal Grandfather Paternal Grandmother Sister Social History Tobacco Use Types Packs/Day Years Used Date Smoking Tobacco: Never Smokeless Tobacco: Never Tobacco Cessation:Counseling Given: Not Answered Alcohol Use Standard Drinks/Week Comments Yes 2 (1 standard drink = 0.6 oz pur e alcohol) Sex and Gender Information Value Date Recorded Sex Assigned at Not on file Legal Sex Male 10:15 PM EST Gender Identity Not on file Sexual Orientation Not on file Obstetrics History Last Filed Vital Signs Vital Sign Reading Time Taken Comments Blood Pressure 130/88 07/22/2024 8:34 AM EDT Pulse 95 07/22/2024 8:34 AM EDT Temperature 36.6 ??C (97.8 ??F) 07/22/2024 8:34 AM ED T Respiratory Rate - - Oxygen Saturation 98% 07/22/2024 8:34 AM EDT Inhaled Oxygen Concentration - - Weight 101 kg (222 lb) 07/22/2024 8:34 AM EDT Height 170.2 cm (5' 7.01 ) 05/13/2024 9:27 AM ES T Body Mass Index 34.76 05/13/2024 9:27 AM EST Plan of Treatment Upcoming Encounters Date Type Department Care Team (Late st Contact Info) Description 08/03/2024 10:00 AM EDT Office Visit [facility] Hematology Oncology [address] [place] [phone] Willie Camargo MD [address] [place] [phone] 08/17/2024 8:15 AM EDT Office Visit Orthopedic Surgery [facility] [address] [facility] [address] [place] [phone] Jignesh Mandel DPM [facility] [address] [place] [address] 11/11/2024 9:30 AM EDT Office Visit Orthopedic Surgery [facility] [address] [facility] [address] [place] [address] Vinayak Lazo MD [address] [facility] [address] [place], [place] [phone] 12/25/2024 8:45 AM EDT Office Visit Internal Medicine - [place] [address] [facility] [address] [place] [address] Joseline Bingham MD [address] [facility] [address] [place] [address] Health Maintenance Due Date Last Done Comments Diabetes: Annual Foot Exam 11/19/1963 Diabetes: Annual Retina Eye Exam 11/19/1963 RSV Immunization Adult Patients (1 - Risk 60-74 years 1-dose series) 2013 Pneumococcal Vaccine: 50+ Years (2 of 2 - PPSV23) 04/06/2020 02/10/2020, 01/13/2020 Hepatitis C Screening 03/10/2022 Social Influencers of Health Screening 03/10/2022 Diabetes: Annual Urine Albumin-Creatinine Ratio (uACR) 03/16/2022 COVID-19 Vaccine (6 - Moderna risk 2023- season) 2024 12/31/2023, 07/29/2021, 02/09/2021, Additional history exists Diabetes: Blood Sugar Control Test (HGBA1C) 01/21/2025 07/22/2024, 01/17/2024, 09/13/2023 Depression Screening 07/22/2025 07/22/2024 Diabetes: Annual GFR (Glomerular Filtration Rate) 07/22/2025 07/22/2024, 09/13/2023 Falls Risk Assessment 07/22/2025 07/22/2024 Hypertension/CHF/CAD Annual BMP Blood Test 07/22/2025 07/22/2024, 09/13/2023 Colorectal Cancer Screening: FIT-DNA (Cologuard) 02/07/2027 02/08/2024, 02/08/2024 Cholesterol Screening (Lipid Panel) 09/12/2028 09/13/2023 DTaP,Tdap,and Td Vaccines (5 - Td or Tdap) 10/07/2032 10/07/2022, 01/30/2021, 12/12/2010, Additional history exists Zoster Vaccines Completed 03/29/2020, 12/30, 02/18/2016 Influenza Vaccine Completed 12/31/2023, , 01/16/2021, Additional history exists HIB Vaccines Aged Out No longer eligi ble based on patient's age to complete this topic HPV Vaccines Aged Out No longer eligi ble based on patient's age to complete this topic Hepatitis A Vaccines Aged Out No long er eligible based on patient's age to complete this topic Hepatitis B Vaccines Aged Out No long er eligible based on patient's age to complete this topic IPV Vaccines Aged Out No longer eligi ble based on patient's age to complete this topic MMR Vaccines Aged Out No longer eligi ble based on patient's age to complete this topic Meningococcal ACWY Vaccine Aged Out N o longer eligible based on patient's age to complete this topic Meningococcal B Vaccine Aged Out No l onger eligible based on patient's age to complete this topic RSV Immunization Patients Under 20 months Aged Out No longer eligible based on patient's age to complete this topic Varicella Vaccines Aged Out No longer eligible based on patient's age to complete this topic Goals Goal Patient Goal Type Associated Problems Recent Progress Patient-Stated? Author STG 12 General Yes Tye Pearson, PT Note: Demo I w/ Force [place]; review progressions as appropriate. Achieve full PROM of the L shld. Pt to demonstrate (=) and appropriate reciprocal arm swing w/ambulation once cleared to remove the sling. Initiate and progress AAROM/AROM w/in protocol restrictions. Pt to present w/o good proper posture w/ optimal scap and GH alignment Pt to be able to perform usual hygiene and dressing independently. LTG's 24 visits General Yes Tye Pearson, PT Note: Demo I w/ final HEP Achieve full AROM L shld AROM to allow return to all usual ADLs. Increase MMT of the L shld/scap/biceps to >/= 4-4+/5 all planes. Be able to RTW w/o limitations. Perform all usual ADLs w/ L UE use w/o limitations Procedures Procedure Name Priority Date/Time Associated Diagnosis Comments COMPREHENSIVE METABOLIC PANEL Routine 07/22/2024 9:14 AM EDT Type 2 diabetes mellitus without complication, without long-term current use of insulin ([facility] V24, [facility] V28) Essential hypertension Dyslipidemia HEMOGLOBIN A1C Routine 07/22/2024 9:14 AM EDT Type 2 diabetes mellitus without complication, without long-term current use of insulin ([facility] V24, [facility] V28) Essential hypertension Dyslipidemia from Last 3 Months Results * (ABNORMAL) Hemoglobin A1c (07/22/2024 9:14 AM EDT) Hemoglobin A1C 7.2(H) <6.5 % LAB CHEMISTRY METHOD 07/22/2024 12:53 PM EDT [facility] Mean Bld Glu Estim. 160 mg/dL LAB CHEMISTRY METHOD 07/22/2024 12:53 PM EDT [facility] Blood Venous blood specimen / Unknown Venipuncture / Unknown 07/22/2024 9:14 AM EDT 07/22/2024 9:34 AM EDT us Joseline Bingham MD LAB BLOOD ORDERABLES Final Res ult [facility] [address] [place] [address], * (ABNORMAL) Comprehensive metabolic panel (07/22/2024 9:14 AM EDT) Sodium 139 133 - 145 mmol/L LAB CHEMISTRY METHOD 07/22/2024 10:39 AM EDT [facility] Potassium 4.5 3.5 - 5.5 mmol/L LAB CHEMISTRY METHOD 07/22/2024 10:39 AM EDT [facility] Chloride 105 96 - 110 mmol/L LAB CHEMISTRY METHOD 07/22/2024 10:39 AM EDT [facility] CO2 28 21 - 32 mmol/L LAB CHEMISTRY METHOD 07/22/2024 10:39 AM [facility] Anion Gap 6 3 - 11 LAB CHEMISTRY METHOD 07/22/2024 10:39 AM [facility] Glucose 209(H) 70 - 100 mg/dL LAB CHEMISTRY METHOD 07/22/2024 10:39 AM [facility] BUN 24 5 - 25 mg/dL LAB CHEMISTRY METHOD 07/22/2024 10:39 AM [facility] Creatinine 1.06 0.70 - 1.30 mg/dL LAB CHEMISTRY METHOD 07/22/2024 10:39 AM [facility] eGFR 75 >=60 mL/min/1. 73m2 LAB CHEMISTRY METHOD 07/22/2024 10:39 AM [facility] Comment:Calculation based on the??Chronic Kidney Disease Epidemiology Collaboration (CKD-EPI) equation refit??without adjustment for race. BUN/Creatinine Ratio 22.6 LAB CHEMISTRY METHOD 07/22/2024 10:39 AM [facility] Calcium 9.7 8.5 - 10.5 mg/dL LAB CHEMISTRY METHOD 07/22/2024 10:39 AM [facility] AST (SGOT) 23 10 - 42 unit/L LAB CHEMISTRY METHOD 07/22/2024 10:39 AM [facility] ALT (SGPT) 37 10 - 60 unit/L LAB CHEMISTRY METHOD 07/22/2024 10:39 AM [facility] Alkaline Phosphatase 66 42 - 121 unit/L LAB CHEMISTRY METHOD 07/22/2024 10:39 AM [facility] Total Protein 7.1 6.0 - 8.0 g/dL LAB CHEMISTRY METHOD 07/22/2024 10:39 AM [facility] Albumin 4.1 3.2 - 5.0 g/dL LAB CHEMISTRY METHOD 07/22/2024 10:39 AM EDT [facility] Total Bilirubin 0.6 0.0 - 1.4 mg/dL LAB CHEMISTRY METHOD 07/22/2024 10:39 AM EDT [facility] Blood Venous blood specimen / Unknown Venipuncture / Unknown 07/22/2024 9:14 AM EDT 07/22/2024 9:28 AM EDT us Joseline Bingham MD LAB BLOOD ORDERABLES Final Res ult [facility] [address] [place] [address], from Last 3 Months Insurance [facility] Care Teams Branch Manager Trainee Relationship Specialty Start Date End Date Joseline Bingham MD [address] [facility] [address] [place] [phone] PCP - General Internal Medicine 03/06/21
[2024-07-31 00:06] VITALS: O2SAT 94
--- NOTE | 2024-07-31 00:19 | PC.NURSE ---
assumed care of pt at 2310
[2024-07-31 00:26] VITALS: BP 132/84; PULSE 81; RESP 18; TEMP 36.7; O2SAT 94
== END 2024-07-31 00:32 | disposition home or self-care (01) ==
PROVIDERS: Emergency Provider Emergency Medicine; PCP Internal Medicine
DX: J06.9 Acute upper respiratory infection, unspecified (principal); R05.9 Cough, unspecified; R06.02 Shortness of breath; Z79.899 Other long term (current) drug therapy; Z03.818 Encounter for observation for suspected exposure to other biological agents ruled out
CPT/HCPCS: 0241U; 71045; 93005; 99283

== ENCOUNTER → 2024-07-30 21:07 | Outpatient (BNV) | payer MEDICARE, SELFPAY | PROVIDERS: Emergency Provider Emergency Medicine; PCP Internal Medicine; Visit Provider Internal Medicine Cardiovascular Disease | DX: I45.10 Unspecified right bundle-branch block (principal) | CPT/HCPCS: 93010 ==

== ENCOUNTER → 2024-07-30 21:15 | Outpatient (BNV) | payer MEDICARE, SELFPAY | PROVIDERS: PCP Internal Medicine; Visit Provider Specialist | DX: R05.9 Cough, unspecified (principal) | CPT/HCPCS: 71045 ==